=== PATIENT | male | born 1945 | race Caucasian/White ===

== ENCOUNTER 2018-08-04 08:13 | Day surgery (SDC) | payer OTHER, BC ==
[2018-07-28 11:12] VITALS: BMI 32.5
[2018-08-04] MEDS ORDERED: BUPIVACAINE HCL/PF 2.5 MG/ML - 30 ML VIAL IJ ONE (10:10)
[2018-08-04] MEDS ORDERED: methylPREDNISolone ACET (DEPO) 40 MG/1 ML VIAL ONE ×2 (10:10→11:37)
[2018-08-04] MEDS ORDERED: ONDANSETRON 4 MG/2 ML VIAL ONE ×2 (10:11→11:26)
[2018-08-04] MEDS ORDERED: LIDOCAINE HCL/PF 2% SDV 5ML VIAL ONE (10:11)
[2018-08-04] MEDS ORDERED: PROPOFOL 20 ML ONE ×2 (10:11→10:58)
[2018-08-04] MEDS ORDERED: KETOROLAC TROMETHAMINE 30 MG/1 ML VIAL ONE (10:11)
[2018-08-04] MEDS ORDERED: DEXAMETHASONE SOD PHOSPHATE 4 MG/1 ML VIAL ONE (10:11)
[2018-08-04] MEDS ORDERED: MIDAZOLAM HCL 2 MG/2 ML SINGLE DOSE VIAL ONE (10:54)
[2018-08-04] MEDS ORDERED: ceFAZolin SODIUM 1 GM VIAL IVPB ONE (11:03)
[2018-08-04] MEDS ORDERED: ceFAZolin SODIUM 1 GM VIAL ONE (11:12)
[2018-08-04] MEDS ORDERED: methylPREDNISolone ACET (DEPO) 40 MG/1 ML VIAL NR ONE (11:40)
[2018-08-04] MEDS ORDERED: BUPIVACAINE HCL/PF 0.25% (2.5MG/ML) 10 ML VIAL IJ ONE (11:40)
[2018-08-04] MEDS ORDERED: oxyCODONE HCL 5 MG TABLET PO PRN (11:57)
[2018-08-04] MEDS ORDERED: ONDANSETRON 4 MG/2 ML VIAL IVPUSH PRN (11:57)
[2018-08-04] MEDS ORDERED: ACETAMINOPHEN 325 MG TABLET (FP) PO PRN (11:57)
[2018-08-04] MEDS ORDERED: LACTATED RINGERS SOLUTION 1,000 ML IV SCH (12:00)
--- NOTE | 2018-08-04 12:16 | OP ---
DATE OF OPERATION: DATE OF DICTATION: 08/04/2018 SURGEON: Ernie Alcaraz MD TERRITORY SERVICE REPRESENTATIVE: Krishan Alcaraz MD PREOPERATIVE DIAGNOSIS: Osteoarthritis, left knee with medial meniscal tear. POSTOPERATIVE DIAGNOSIS: Diffuse tricompartmental severe osteoarthritis knee with fibular tearing of the medial and lateral meniscus and diffuse synovitis. OPERATION PERFORMED: Left arthroscopic washout and diagnostic arthroscopy of the knee. ANESTHESIA: General. DESCRIPTION OF PROCEDURE: The patient was correctly identified. Brought to the operating room. The left lower extremity was prepped and draped in a routine manner with Betadine scrub solution, wiped off with alcohol, DuraPrep applied. Under general anesthesia, the knee was examined. Crepitus was noted in the patellofemoral and femorotibial joint. The knee was in slight valgus. The standard anterolateral portal was utilized after a routine draping. The arthroscopic instrumentation into the knee revealed multiple fibular loose bodies in the joint. The joint was thoroughly lavaged. The joint was inspected. There was diffuse villonodular- type synovitis throughout, angry hemorrhagic-appearing material. The trochlear groove, the retropatellar surface, the tibial plateaus, and the femoral condyles were diffusely involved in severe end-stage osteoarthritic process. The menisci were carefully inspected. The medial meniscus interestingly virtually covered the entire surface of the tibial plateau much like a discoid meniscus. The inner margin revealed fibular fraying, but there was no flap tear in the confines of the meniscus at all. We were able to place the scope under the actual meniscus itself, looked at the meniscus from the deep undersurface as well as the superior surface. On review of an intact meniscus, this was left well alone. The intercondylar notch revealed a well-maintained anterior cruciate ligament. PCL ligament was also visualized. Appeared to be normal. The lateral compartment revealed the same degree of osteoarthritic changes as that of the medial compartment. The meniscus itself was a normal-looking meniscus as well with intrafibular marginal tearing. Slightly more advanced fibular degenerative changes noted on the lateral meniscus. It was elected at this point to leave well alone. We washed the joint out of all of the debris and instilled Marcaine steroid into the joint and closed the wound with a single nylon suture. PLAN: This gentleman will require a left total knee arthroplasty. MD ALEJANDRO Shi/[id number] KOLE
[2018-08-04] MEDS ORDERED: DOCUSATE SODIUM 100 MG CAPSULE (FP) PO PRN ×2 (12:20)
[2018-08-04] MEDS ORDERED: PATIENT'S OWN MEDICATION (NON-FORMULARY) (Alprazolam [Xanax] 0.5 MG) PO PRN (12:20)
--- NOTE | 2018-08-04 12:20 | PN ---
Progress Note (short form) - Note Progress Note: 73M s/p surgical arthroscopy LEFT knee POD #0. -Pain control: per anaesthesia team; NSAID's. -DVT PPx: - Mechanical: ROLANDO's, SCD's. -Incentive spirometry. -PT/OT/Rehab, OOB. -WBAT LLE. -Cane/crutches as needed. -Diet as tolerated. -Keep dressing clean & dry; d/c dressing on Tuesday, place waterproof Band-Aid's over incisions, then OK to resume showering. -Discharge planning: f/u [facility] [place] office Tuesday08/11/2018; call for appointment; . -Will follow. Ernie Alcaraz MD (Orthopaedic Surgery).
--- NOTE | 2018-08-04 12:23 | OP ---
Operative Note - Note: Operative Date: 08/04/18 Pre-Operative Diagnosis: Primary osteoarthritis left knee Operation: Primary osteoarthritis left knee Findings: Tricompartment arthritis left knee Tourniquet Pressure: 250mmHg. Tourniquet Time: 15 minutes. Post-Operative Diagnosis: Same as Pre-op Surgeon: Ernie Alcaraz Small Parts Assembler: Krishan Alcaraz Anesthesiologist/LEADERSHIP RECRUITER: Tomasa Lott Anesthesia: General Estimated Blood Loss (mls): 0 Fluid Volume Replaced (mls): 600 (Crystalloid) Operative Report Dictated: Yes
[2018-08-04] MEDS ORDERED: hydrALAZINE HCL 50 MG TABLET (FP) PO SCH (14:00)
[2018-08-04 15:13] VITALS: TEMP 97.8
[2018-08-04 15:17] VITALS: BP 124/75; PULSE 56
[2018-08-04] MEDS ORDERED: POTASSIUM CHLORIDE TABS 10 MEQ TABLET.ER (FP) PO SCH (22:00)
[2018-08-04] MEDS ORDERED: MIRTAZAPINE 30 MG TABLET (FP) PO SCH (22:00)
[2018-08-05] MEDS ORDERED: FUROSEMIDE 40 MG TABLET (FP) PO SCH (10:00)
[2018-08-05] MEDS ORDERED: FOSINOPRIL SODIUM PO SCH (10:00)
[2018-08-05] MEDS ORDERED: ASPIRIN COATED 81 MG TABLET.EC PO SCH (10:00)
[2018-08-05] MEDS ORDERED: ESCITALOPRAM OXALATE 10 MG TABLET (FP) PO SCH (10:00)
[2018-08-05] MEDS ORDERED: amLODIPine BESYLATE 10 MG TABLET (FP) PO SCH (10:00)
[2018-08-05] MEDS ORDERED: PATIENT'S OWN MEDICATION (NON-FORMULARY) (Ferrous Sulfate [Ferrous Sulfate] 325 MG) PO SCH (10:00)
[2018-08-05] MEDS ORDERED: INSULIN GLARGINE HUM REC ANLOG 28 UNIT SQ SCH (10:00)
[2018-08-05] MEDS ORDERED: METOLAZONE 5 MG TABLET PO SCH (10:00)
[2018-08-05] MEDS ORDERED: PATIENT'S OWN MEDICATION (NON-FORMULARY) (Famotidine [Pepcid] 40 MG) PO SCH (10:00)
[2018-08-05] MEDS ORDERED: FOLIC ACID 1 MG TABLET (FP) PO SCH (10:00)
[2018-08-05] MEDS ORDERED: PATIENT'S OWN MEDICATION (NON-FORMULARY) (Simvastatin 10 MG) PO SCH (10:00)
[2018-08-05] MEDS ORDERED: PATIENT'S OWN MEDICATION (NON-FORMULARY) (Tadalafil [Cialis] 20 MG) PO SCH (10:00)
[2018-08-05] MEDS ORDERED: PSYLLIUM HUSK 660 GM PO SCH (10:00)
[2018-08-05] MEDS ORDERED: GABAPENTIN 300 MG CAPSULE (FP) PO SCH (10:00)
== END 2018-08-04 14:20 | disposition home or self-care (01) ==
LOC: FASU 08:13
PROVIDERS: ATTEND Orthopaedic Surgery Orthopaedic Surgery of the Spine
PROC: 0SJD4ZZ Inspection of Left Knee Joint, Percutaneous Endoscopic Approach (ICD-10-PCS; principal; 2018-08-04 10:00)
DX: M17.12 Unilateral primary osteoarthritis, left knee (principal); M23.362 Other meniscus derangements, other lateral meniscus, left knee; M23.332 Other meniscus derangements, other medial meniscus, left knee
CPT/HCPCS: 82962; 94760

== ENCOUNTER 2018-12-20 08:00 | Inpatient (IN) | payer OTHER, BC ==
[2018-12-11 12:32] VITALS: BMI 33.9
[2018-12-20] MEDS ORDERED: BUPIVACAINE LIPOSOME/PF (EXPAREL) 266 MG/20 ML VIAL ONE (10:04)
[2018-12-20] MEDS ORDERED: SODIUM CHLORIDE 0.9% P/F 10 ML VIAL IJ ONE (10:04)
[2018-12-20] MEDS ORDERED: MIDAZOLAM HCL 2 MG/2 ML SINGLE DOSE VIAL ONE (10:04)
[2018-12-20] MEDS ORDERED: VANCOMYCIN 1,000 MG VIAL (RESTRICTED TO ID ONLY) ONE (10:40)
[2018-12-20] MEDS ORDERED: TRANEXAMIC ACID 1000 MG/10 ML VIAL IVPUSH ONE (11:22)
[2018-12-20] MEDS ORDERED: CEFAZOLIN 2 GM/D5W 2 GM/50 ML ML IVPB ONE (11:22)
[2018-12-20] MEDS ORDERED: ePHEDrine SULFATE 50 MG/1 ML AMPULE ONE ×2 (11:35→11:49)
[2018-12-20] MEDS ORDERED: PHENYLEPHRINE HCL 10 MG/1 ML SINGLE DOSE VIAL ONE (11:42)
[2018-12-20] MEDS ORDERED: ceFAZolin SODIUM 1 GM VIAL ONE ×3 (11:48→13:11)
[2018-12-20] MEDS ORDERED: TRANEXAMIC ACID 1000 MG/10 ML VIAL ONE (13:10)
[2018-12-20] MEDS ORDERED: BENZOIN/ALOE VERA/STORAX/TOLU 58 ML BOTTLE ONE (13:33)
[2018-12-20] MEDS ORDERED: ONDANSETRON 4 MG/2 ML VIAL IVPUSH PRN ×2 (13:43→14:14)
[2018-12-20] MEDS ORDERED: MAGNESIUM HYDROX 2400MG/30ML ORAL SUSPENSION 30 ML CUP PO PRN (13:43)
[2018-12-20] MEDS ORDERED: MAG HYDROX/AL HYDROX/SIMETH 30 ML UNIT-DOSE CUP PO PRN (13:43)
[2018-12-20] MEDS ORDERED: LACTATED RINGERS SOLUTION 1,000 ML IV SCH ×2 (13:45→16:46)
[2018-12-20] MEDS ORDERED: PATIENT'S OWN MEDICATION (NON-FORMULARY) (Simethicone [Simethicone] 125 MG) PO PRN (13:45)
--- NOTE | 2018-12-20 13:48 | PN ---
Progress Note (short form) - Note Progress Note: 73M s/p LEFT total knee replacement POD #0. -Pain control. -DVT PPx: -Chemical: ASA 81mg PO BID x 6 weeks; home Coumadin dosage. -Mechanical: ROLANDO's, SCD's. -Incentive spirometry q15 min. -PT/OT/Rehab, OOB. -WBAT LLE. -Antibiotics: Ancef x 3 post op doses. -f/u post-op trial of void (8 hours max). -Diet as tolerated. -Keep dressing clean & dry. -Care per medical hospitalist: Dr. Gamble. -f/u [facility] [place] office 12/28/2018; call for appointment; [phone]. -Will follow. Ernie Alcaraz MD (Orthopaedic Surgery).
--- NOTE | 2018-12-20 13:50 | OP ---
Operative Note - Note: Operative Date: 12/20/18 Pre-Operative Diagnosis: Left knee DJD Operation: Left TKA Implants: [employer]. Femur - 5. Tibia - 6, 50mm stem. Poly - 11mm, PS. Patella - 27mm, symmetric Post-Operative Diagnosis: Same as Pre-op Surgeon: Ernie Alcaraz Mounter Smoking Pipe: Krishan Alcaraz Anesthesiologist/MACHINE I CUTTER: Gunnar Nix Anesthesia: Spinal Specimens Removed: Bone, soft tissue Estimated Blood Loss (mls): 50 Drains & Tubes with Location: 1 x deep HemoVac Fluid Volume Replaced (mls): 750 Operative Report Dictated: Yes
[2018-12-20] MEDS ORDERED: GABAPENTIN 300 MG CAPSULE (FP) PO SCH (14:00)
[2018-12-20] MEDS ORDERED: PROMETHAZINE HCL 25 MG/1 ML VIAL IVPB PRN (14:14)
[2018-12-20] MEDS ORDERED: oxyCODONE HCL 5 MG TABLET PO PRN (14:14)
[2018-12-20] MEDS: ACETAMINOPHEN 325 MG TABLET (FP) PO SCH ×2 (14:52→20:22)
[2018-12-20] MEDS: ALPRAZolam 0.25 MG TABLET PO PRN (16:33)
[2018-12-20] MEDS: hydrALAZINE HCL 50 MG TABLET (FP) PO SCH ×2 (17:16→21:34)
[2018-12-20] MEDS: oxyCODONE HCL 5 MG TABLET PO PRN ×2 (18:16→22:44)
[2018-12-20] MEDS: CEFAZOLIN 2 GM/D5W 2 GM/50 ML ML IVPB SCH (18:32)
--- NOTE | 2018-12-20 18:53 | CONSULT ---
Consult Consult Specialty:: IM Reason for Consultation:: post-op medical management - History of Present Illness Chief Complaint: left knee pain. denies chest pain, nausea, vomiting, diarrhea History of Present Illness: 73 yo man with Left knee DJD came in for left knee TKA. denies chest pain, palpitations, nausea, vomiting, diarrhea. - History Source History Provided By: Patient Limitations to Obtaining History: No Limitations - Past Medical History Cardio/Vascular: Yes: HTN Heme/Onc: Yes: Anemia ( ) Psych: Yes: Anxiety, Depression - Alcohol/Substance Use Hx Alcohol Use: Yes (OCCASIONALLY) - Smoking History Smoking history: Never smoked Home Medications - Allergies Allergies/Adverse Reactions: Allergies Allergy/AdvReac Type Severity Reaction Status Date / Time Sulfa (Sulfonamide Allergy Severe Rash Verified 12/20/18 08:48 Antibiotics) levofloxacin [From Levaquin] Allergy Unknown Verified 12/20/18 08:48 - Home Medications Home Medications: Ambulatory Orders Alprazolam [Xanax] 0.5 mg PO Q4H PRN 07/28/18 Amlodipine Besylate [Norvasc -] 10 mg PO DAILY 07/28/18 Aspirin [Adult Aspirin Regimen] 81 mg PO DAILY 07/28/18 Docusate Sodium [Colace] 100 mg PO TID PRN 07/28/18 Escitalopram Oxalate [Lexapro -] 10 mg PO DAILY 07/28/18 Famotidine [Pepcid] 40 mg PO DAILY 07/28/18 Ferrous Sulfate 325 mg PO DAILY 07/28/18 Folic Acid 1 mg PO DAILY 07/28/18 Fosinopril Sodium 5 mg PO DAILY 07/28/18 Furosemide [Lasix -] 40 mg PO DAILY 07/28/18 Gabapentin 300 mg PO TID 07/28/18 Hydralazine HCl 50 mg PO TID 07/28/18 Insulin Glargine,Hum.rec.anlog [Lantus Solostar PEN (NF)] 34 units SQ DAILY Metoprolol Succinate [Toprol Xl] 50 mg PO BID 07/28/18 Mirtazapine 30 mg PO HS 07/28/18 Potassium Chloride [Klor-Con M10] 10 meq PO BID 07/28/18 Psyllium Husk [Metamucil] 660 gm PO DAILY PRN 07/28/18 Simvastatin [Zocor] 10 mg PO DAILY 07/28/18 Tadalafil [Cialis] 20 mg PO DAILY 07/28/18 Cholecalciferol (Vitamin D3) [Vitamin D3] 1,000 unit PO DAILY 12/11/18 Escitalopram Oxalate [Lexapro -] 10 mg PO DAILY 12/11/18 Metolazone 5 mg PO DAILY 12/11/18 Sennosides [Senna] 8.6 mg PO DAILY PRN 12/11/18 Simethicone 125 mg PO TID PRN 12/11/18 Sitagliptin Phosphate [Januvia] 25 mg PO DAILY 12/11/18 Tadalafil [Cialis] 20 mg PO DAILY PRN 12/11/18 Family Disease History - Family Disease History Family History: Unremarkable Review of Systems - Review of Systems Constitutional: reports: Weakness Eyes: reports: No Symptoms HENT: reports: No Symptoms Neck: reports: No Symptoms Cardiovascular: reports: No Symptoms Respiratory: reports: No Symptoms Gastrointestinal: reports: Bloating Genitourinary: reports: No Symptoms Musculoskeletal: reports: Joint Pain, Joint Swelling Integumentary: reports: No Symptoms Neurological: reports: No Symptoms Endocrine: reports: No Symptoms Hematology/Lymphatic: reports: No Symptoms Psychiatric: reports: Anxiety, Depression Pain Intensity: 7 Physical Exam Vital Signs: Vital Signs Temperature 97.4 F L 12/20/18 17:43 Pulse Rate 51 L 12/20/18 17:43 Respiratory Rate 14 12/20/18 17:43 Blood Pressure 155/55 L 12/20/18 17:43 O2 Sat by Pulse Oximetry (%) 100 12/20/18 17:43 Constitutional: Yes: Well Nourished, Anxious Eyes: Yes: WNL HENT: Yes: WNL Neck: Yes: WNL Cardiovascular: Yes: WNL Respiratory: Yes: WNL Gastrointestinal: Yes: Hypoactive Bowel Sounds Renal/: Yes: WNL Musculoskeletal: Yes: Joint Stiffness Extremities: Yes: WNL Edema: No Peripheral Pulses WNL: Yes Integumentary: Yes: WNL Wound/Incision: Yes: Clean/Dry, Well Approximated Neurological: Yes: WNL ...Motor Strength: WNL Assessment/Plan 73 yo man with left knee pain S/P TKA POD#0. cont pain management. incentive spirometry -GI, DVT prophylaxis -ID: Cefazolin given dano-operatively. -HTN: cont amlodipine, hydralazine. -type 2 DM: on insulin, RISS, januvia. -major anxiety and depression: on xanax, lexapro -chronic systolic CHF: on lasix, lisinopril, zaroxylin -PT/OOB/OT as tolerated -oral diet -assessment and plan discussed with pt and staff. labs and meds reviewed phone calls answered AM labs ordered 45 min
[2018-12-20] MEDS: ATORVASTATIN CA 10 MG TABLET (FP) PO SCH (21:34)
[2018-12-20] MEDS: ASPIRIN COATED 81 MG TABLET.EC PO SCH (21:34)
[2018-12-20] MEDS: MIRTAZAPINE 15 MG TABLET (FP) PO SCH (21:34)
[2018-12-20] MEDS: POTASSIUM CHLORIDE TABS 10 MEQ TABLET.ER (FP) PO SCH (21:35)
[2018-12-20] MEDS: SENNOSIDES/DOCUSATE COMBO (SENNA PLUS) TABLET (UD) PO SCH (21:35)
[2018-12-20] MEDS: oxyCODONE HCL 10 MG SUSTAINED ACTING TABLET PO SCH (21:35)
[2018-12-21] MEDS: ALPRAZolam 0.25 MG TABLET PO PRN (00:17)
[2018-12-21] MEDS: CEFAZOLIN 2 GM/D5W 2 GM/50 ML ML IVPB SCH ×2 (00:28→06:36)
[2018-12-21] MEDS: ACETAMINOPHEN 325 MG TABLET (FP) PO SCH ×4 (01:21→21:22)
[2018-12-21] MEDS: hydrALAZINE HCL 50 MG TABLET (FP) PO SCH ×3 (06:36→21:21)
[2018-12-21] MEDS: INSULIN (LEVEMIR) 100 UNITS/ML UNITS SQ SCH (07:30)
[2018-12-21 08:03] LABS: BASO % 0.3 % (0-2.0); EOS % 0.1 % (0-4.5); HEMATOCRIT 28.7 % (35.4-49); HEMOGLOBIN 9.5 GM/dl (11.7-16.9); MCHC 33.1 g/dl (32.0-35.9); MEAN CELL VOLUME 90.7 fl (80-96); MEAN PLT VOLUME 8.4 fl (7.5-11.1); MONO % 15.3 % (3.8-10.2); NEUT % 64.3 % (42.8-82.8); PLATELET COUNT 255 K/MM3 (134-434); RBC 3.17 M/mm3 (4.00-5.60); RDW 12.2 % (11.9-15.9); WHITE BLOOD COUNT 16.2 K/mm3 (4.0-10.8)
[2018-12-21 08:15] LABS: CALCIUM 8.8 mg/dl (8.5-10); CREATININE 3.7 mg/dl (0.55-1.3); POTASSIUM 3.1 mmol/L (3.5-5.1)
[2018-12-21] MEDS: METOLAZONE 5 MG TABLET PO SCH (09:35)
[2018-12-21] MEDS ORDERED: ESCITALOPRAM OXALATE 10 MG TABLET (FP) PO SCH (10:00)
[2018-12-21] MEDS ORDERED: PATIENT'S OWN MEDICATION (NON-FORMULARY) (Famotidine [Pepcid] 40 MG) PO SCH (10:00)
--- NOTE | 2018-12-21 10:38 | PN ---
Progress Note (short form) - Note Progress Note: POD #1 Left TKA Patient had some issues with pain control overnight but now resolved. Patient states his pain is controlled and he is tolerating his diet. He denies any CP, SOB, N/V, fever or chills. Vital Signs Temp 101 F H 12/21/18 07:17 Pulse 97 H 12/21/18 06:00 Resp 18 12/21/18 06:00 BP 178/72 H 12/21/18 06:00 Pulse Ox 93 L 12/21/18 06:00 Intake & Output 12/20/18 12/20/18 12/21/18 11:59 23:59 11:59 Intake Total 4700 Output Total 515 Balance 4185 Weight 229 lb 9.6 oz Intake: IV 1300 Oral 400 Other 3000 Output: Drainage 15 Urine 500 Void 500 Other: Voiding Method Urinal Diaper Height 5 ft 9 in Body Mass Index (BMI) 33.9 Weight Measurement Method Standing Scale CBC, BMP 12/21/18 07:20 12/21/18 07:20 PE: A&Ox3, NAD Unlabored resp on RA Left LL, dressing with minimal amount of dried blood at lateral boarder of knee and some midline. no evidence of active bleeding, collection or d/c. ROM from 5- 70 degrees. B/L LE compartments soft, supple and non-tender with +2 DP pulses. Problem List - Problems (1) Arthritis of knee Assessment/Plan: POD#1 Left TKA patient spiked fever in AM in the setting of chronic anemia and CKD. -trend vitals/fever- Fever work up as needed -Pain control. -DVT PPx: -Chemical: ASA 81mg PO BID x 6 weeks -Mechanical: ROLANDO's, SCD's. -Incentive spirometry q15 min. -PT/OT/Rehab, OOB. -WBAT LLE. -Antibiotics: Ancef x 3 post op doses. -Diet as tolerated. - Trend labs -Keep dressing clean & dry. -Care per medical hospitalist: Dr. Gamble. -f/u [facility] [place] office 12/28/2018; call for appointment; . -Will follow. Code(s): M17.10 - UNILATERAL PRIMARY OSTEOARTHRITIS, UNSPECIFIED KNEE
[2018-12-21] MEDS: ASPIRIN COATED 81 MG TABLET.EC PO SCH ×2 (10:43→21:21)
[2018-12-21] MEDS: POTASSIUM CHLORIDE TABS 10 MEQ TABLET.ER (FP) PO SCH ×2 (10:43→21:21)
[2018-12-21] MEDS: ESCITALOPRAM OXALATE 10 MG TABLET (FP) PO SCH (10:43)
[2018-12-21] MEDS: FUROSEMIDE 40 MG TABLET (FP) PO SCH (10:43)
[2018-12-21] MEDS: amLODIPine BESYLATE 10 MG TABLET (FP) PO SCH (10:44)
[2018-12-21] MEDS: oxyCODONE HCL 10 MG SUSTAINED ACTING TABLET PO SCH ×2 (10:44→21:21)
[2018-12-21] MEDS: LISINOPRIL 5 MG TABLET (FP) PO SCH (10:52)
[2018-12-21] MEDS: SENNOSIDES/DOCUSATE COMBO (SENNA PLUS) TABLET (UD) PO SCH ×2 (10:52→21:20)
[2018-12-21] MEDS: PANTOPRAZOLE 40 MG TABLET (FP) PO SCH (10:52)
--- NOTE | 2018-12-21 12:32 | OP ---
DATE OF OPERATION: DATE OF DICTATION: 12/20/2018 SURGEON: Ernie Alcaraz MD ASSISTANTS: Krishan Alcaraz MD, and Keith Justice PA-C PREOPERATIVE DIAGNOSIS: Tricompartmental osteoarthritis, left knee, with fixed valgus deformity. POSTOPERATIVE DIAGNOSIS: Tricompartmental osteoarthritis, left knee, with fixed valgus deformity. OPERATION PERFORMED: 1. Left posterior stabilized total knee replacement (Lavon). 2. Left lateral release. ANESTHESIA: Conscious sedation with spinal anesthesia and peripheral nerve block. ANTIBIOTICS GIVEN: Kefzol 2 g, 1 g vancomycin preop, 1 g Kefzol at the time of release of the tourniquet. OPERATION DETAILS: Patient correctly identified, brought to the operating room. Left lower extremity was prepped and draped in the routine manner with Betadine scrub solution, wiped with alcohol, DuraPrep applied. Timeout was called. Imaging was available for intraoperative evaluation. On the table, preoperative evaluation revealed classical features of tricompartmental osteoarthritis with range of movement 0-90 degrees. After full drape and preparation with Betadine scrub solution, being wiped off with alcohol and DuraPrep applied and a left free drape applied, a midline incision was utilized, centered over the patella, just distal to the tibial tubercle and just proximal to the superior pole of the patella. The exposure was taken down through subcutaneous tissue to the fascia. The entire quadriceps mechanism was exposed. The proximomedial aspect of the tibial soft tissue off the medial side of the proximal tibia was dissected using Bovie and sharp dissection all the way around. This extended up to the midsection of the patella and curved around to extend right, leaving about 1 inch of the border of the vastus medialis. Soft tissue attachments were left alone and incision was taken through this plane right down to the posterior aspect of the femoral condyle just anterior to the vascular bundle. The epimysium of the vastus was freed off the muscle with sharp dissection. The suprapatellar pouch was entered and transected and the soft tissue off the distal anterior aspect of the femur resected. Blunt Hohmann was placed at the subvastus, and the patella was subluxed laterally and the knee was flexed with no difficulty. This subvastus approach gave complete easy access to the knee. The cruciate ligaments were transected. The menisci were easy at hand to resect, which was done. The tibia was cut first. The tibia cut was made utilizing the extramedullary jig alignment of [employer]. It was cut to neutral, that is 90 degrees to the tibia, lined up to the middle of the talus. The cuts took off about the regular 2 mm of bone off the proximal tibia. We measured the tibia at that point to a size 6, and the tibial bed was appropriately prepared with the starter drill and the broach. The knee was flexed, and the distal femoral cuts were made with the jig system, +4 mm of bone resected off the distal femur, the reason being that the lateral femoral condyle was markedly deficient, and in order to get a bone cut on that area for cementing the implant, this was appropriately done so that there was no excess of valgus deformity built into the implant as a result of this bone resection. The femur was measured to a size 5. Flexion-extension gaps were equal and even at 11 mm. The jig cuts enabled completely normal bony cuts. The box cut was made with the appropriate jig, and a size 4 femoral component was placed onto the bone bed for trialing purposes. This resulted in the knee being fully straight and full range of movement noted, but the only problem was the patella was subluxing laterally, and for that reason we then went ahead from inside to perform a lateral release. The lateral retinaculum was identified. A Bovie was utilized in order to open and make a defect in the lateral soft tissue mass. A sharp Prince scissors was run up and down. We aimed at transecting the retinacular tissues by only interfering with the inferior and middle lateral genicular vessels. We did not go proximally to interfere with the superior blood supply of the quadriceps tendon and patella. Once this lateral release had been completed, then the trialing, we were satisfied with the trialing. We had complete stability found with an 11-mm spacer, knee brought into full extension and was able to flex to 120 degrees with ease, and stability in the coronal sagittal rotatory plane 0, 90 degrees, were all normal and well maintained. We elected to go ahead and with cementing. The bone bed was thoroughly lavaged with pulse lavage, dried, entheses noted. pumped into the entheses and the definitive implants, namely a size 6 tibia, size 5 femur, size 26-mm patellar button all cemented into position. The preparation of the patella button was performed by resecting the retropatellar surface from patellar ligament to quadriceps tendon with an oscillating saw and the appropriate jigs applied and the lug holes inserted into the patella. On the table the range of movement was 0-120 degrees. The ligaments within the coronal, sagittal articular plane at 0 and 100 degrees were normal. At that point we elected to go ahead with removal of the tourniquet, and closure was as follows: The remaining soft tissue envelope with No. 1 Vicryl, that is the subvastus repair. The subcutaneous layer was No. 1 and 2-0 Vicryl. Skin, genesis. Drainage with 1/8-inch Hemovac x1. Light bandage applied. Postop x-rays were excellent. Patient extricated out of the room. CONCERNS: Blood loss due to the myeloma. This will be attended to over the next few days. MD ALEJANDRO Shi/[id number]
--- NOTE | 2018-12-21 13:33 | PN ---
Progress Note (short form) - Note Progress Note: ANESTHESIA POSTOP 73 YO MALE POD#1 S/P TKA, SPINAL AND PNB Patient resting in bed. No pain issues. Continue current care, encouraged IS and PT. No anesthetic complications
--- NOTE | 2018-12-21 20:58 | PN ---
Progress Note, Physician History of Present Illness: 73 yo man with Left knee DJD came in for left knee TKA. denies chest pain, palpitations, nausea, vomiting, diarrhea. - Current Medication List Current Medications: Active Medications Acetaminophen (Tylenol -) 650 mg PO Q6H [facility] Stop: 12/23/18 14:14 Last Admin: 12/21/18 13:35 Dose: 650 mg Al Hydroxide/Mg Hydroxide (Mylanta Oral Suspension -) 30 ml PO Q4H PRN PRN Reason: DYSPEPSIA Alprazolam (Xanax -) 0.5 mg PO Q4H PRN PRN Reason: ANXIETY Last Admin: 12/21/18 00:17 Dose: 0.5 mg Amlodipine Besylate (Norvasc -) 10 mg PO DAILY [facility] Last Admin: 12/21/18 10:44 Dose: 10 mg Aspirin (Ecotrin -) 81 mg PO BID [facility] Last Admin: 12/21/18 10:43 Dose: 81 mg Atorvastatin Calcium (Lipitor -) 10 mg PO HS [facility] Last Admin: 12/20/18 21:34 Dose: 10 mg Escitalopram Oxalate (Lexapro -) 10 mg PO DAILY [facility] Last Admin: 12/21/18 10:43 Dose: 10 mg Fentanyl (Sublimaze Injection -) 50 mcg IVPUSH [id number] PRN PRN Reason: PAIN-PACU ORDER X 4 DOSES ONLY Furosemide (Lasix -) 40 mg PO DAILY [facility] Last Admin: 12/21/18 10:43 Dose: 40 mg Hydralazine HCl (Apresoline -) 50 mg PO TID [facility] Last Admin: 12/21/18 14:00 Dose: 50 mg Insulin Detemir (Levemir Vial) 34 units SQ 0700 [facility] Last Admin: 12/21/18 07:30 Dose: 34 units Lisinopril (Prinivil) 5 mg PO DAILY [facility] Last Admin: 12/21/18 10:52 Dose: 5 mg Magnesium Hydroxide (Milk Of Magnesia -) 30 ml PO PRN PRN PRN Reason: CONSTIPATION Metolazone (Zaroxolyn -) 5 mg PO 0930 [facility] Last Admin: 12/21/18 09:35 Dose: 5 mg Metoprolol Succinate (Toprol Xl -) 50 mg PO BID [facility] Last Admin: 12/21/18 10:54 Dose: 50 mg Mirtazapine (Remeron -) 30 mg PO HS [facility] Last Admin: 12/20/18 21:34 Dose: 30 mg Non-Formulary Medication (Simethicone [Simethicone]) 125 mg PO TID PRN PRN Reason: FLATULENCE Ondansetron HCl (Zofran Injection) 4 mg IVPUSH Q6H PRN PRN Reason: NAUSEA Oxycodone HCl (Roxicodone -) 5 mg PO Q3H PRN PRN Reason: PAIN LEVEL 1-5 Oxycodone HCl (Roxicodone -) 10 mg PO Q3H PRN PRN Reason: PAIN LEVEL 6-10 Last Admin: 12/20/18 22:44 Dose: 10 mg Oxycodone HCl (Oxycontin -) 10 mg PO BID [facility] Stop: 12/23/18 14:16 Last Admin: 12/21/18 10:44 Dose: 10 mg Pantoprazole Sodium (Protonix -) 40 mg PO DAILY [facility] Last Admin: 12/21/18 10:52 Dose: 40 mg Potassium Chloride (K-Dur -) 10 meq PO BID [facility] Last Admin: 12/21/18 10:43 Dose: 10 meq Promethazine HCl (Phenergan Injection -) 12.5 mg IVPB Q6H PRN PRN Reason: NAUSEA-FOR RESCUE AFTER 15 MIN Senna/Docusate Sodium (Pericolace -) 2 tablet PO BID [facility] Last Admin: 12/21/18 10:52 Dose: 2 tablet Sitagliptin Phosphate (Januvia -) 25 mg PO 0700 [facility] Last Admin: 12/21/18 06:36 Dose: 25 mg - Objective Vital Signs: Vital Signs Temperature 101.1 F H 12/21/18 14:00 Pulse Rate 68 12/21/18 14:00 Respiratory Rate 20 12/21/18 20:23 Blood Pressure 114/44 L 12/21/18 14:00 O2 Sat by Pulse Oximetry (%) 97 12/21/18 20:23 Constitutional: Yes: Well Nourished, No Distress Eyes: Yes: WNL HENT: Yes: WNL Neck: Yes: WNL Cardiovascular: Yes: WNL Respiratory: Yes: WNL Gastrointestinal: Yes: WNL ...Rectal Exam: Yes: Deferred Genitourinary: Yes: WNL Musculoskeletal: Yes: Joint Stiffness Extremities: Yes: WNL Edema: No Peripheral Pulses WNL: Yes Integumentary: Yes: WNL Wound/Incision: Yes: Clean/Dry, Well Approximated Neurological: Yes: WNL ...Motor Strength: WNL Psychiatric: Yes: WNL Labs: CBC, BMP 12/21/18 07:20 12/21/18 07:20 Assessment/Plan 73 yo man with left knee pain S/P TKA POD#1. cont pain management. incentive spirometry -GI, DVT prophylaxis -ID: Cefazolin given dano-operatively. -HTN: cont amlodipine, hydralazine. -type 2 DM: on insulin, RISS, januvia. -major anxiety and depression: on xanax, lexapro -chronic systolic CHF: on lasix, lisinopril, zaroxylin. hypokalemia from diuresis. supplemented. -PT/OOB/OT. so far well tolerated -oral diet -assessment and plan discussed with pt and staff. labs and meds reviewed phone calls answered 25 min
[2018-12-21] MEDS: MIRTAZAPINE 15 MG TABLET (FP) PO SCH (21:21)
[2018-12-21] MEDS: ATORVASTATIN CA 10 MG TABLET (FP) PO SCH (21:21)
[2018-12-22] MEDS: ACETAMINOPHEN 325 MG TABLET (FP) PO SCH ×4 (06:57→21:13)
[2018-12-22] MEDS: hydrALAZINE HCL 50 MG TABLET (FP) PO SCH ×3 (06:58→21:13)
[2018-12-22] MEDS: INSULIN (LEVEMIR) 100 UNITS/ML UNITS SQ SCH (07:34)
[2018-12-22 08:17] LABS: CALCIUM 8.2 mg/dl (8.5-10); CREATININE 4.2 mg/dl (0.55-1.3); POTASSIUM 3.4 mmol/L (3.5-5.1)
[2018-12-22 08:35] LABS: BASO % 0.2 % (0-2.0); EOS % 0.1 % (0-4.5); HEMATOCRIT 24.5 % (35.4-49); HEMOGLOBIN 8.3 GM/dl (11.7-16.9); LYMPH % 18.7 % (8-40); MCH 30.9 pg (25.7-33.7); MCHC 33.9 g/dl (32.0-35.9); MEAN CELL VOLUME 91.1 fl (80-96); MEAN PLT VOLUME 8.5 fl (7.5-11.1); MONO % 11.4 % (3.8-10.2); NEUT % 69.6 % (42.8-82.8); PLATELET COUNT 183 K/MM3 (134-434); RDW 12.6 % (11.9-15.9); WHITE BLOOD COUNT 14.3 K/mm3 (4.0-10.8)
[2018-12-22] MEDS: ALPRAZolam 0.25 MG TABLET PO PRN (08:50)
[2018-12-22] MEDS ORDERED: PT OWN MED DRAWER 7, Y5N ONE (09:51)
--- NOTE | 2018-12-22 09:53 | PN ---
Progress Note (short form) - Note Progress Note: POD #2 Left TKA Patient having a lot of anxiety this morning saying he is afraid to move 2/2 pain, although nursing reports he has been moving on his own with no problems. He appears in distress this morning stating his head "spinning and he cant think straight." This entire process has been very overwhelming for him. He endorses feeling feverish. Overall his pain is controlled, he is tolerating his diet and voiding freely. He denies any H/A CP, SOB, N/V/D or chills. Vital Signs Temp 99.0 F 12/22/18 06:00 Pulse 89 12/22/18 06:00 Resp 19 12/22/18 06:00 BP 143/59 L 12/22/18 06:00 Pulse Ox 98 12/22/18 06:00 Intake & Output 12/21/18 12/21/18 12/22/18 11:59 23:59 11:59 Intake Total 350 380 Balance 350 380 Intake: Oral 350 380 Other: Voiding Method Diaper Diaper Diaper CBC, BMP 12/22/18 06:30 12/22/18 06:30 PE: A&Ox1, but cannot recall the month or name of the hospital. teary eyed Unlabored resp on RA Left LL, incision c/d/i with surrounding tissue intact and genesis in situ, no tracking erythema or evidence of collection or d/c. ROM from 10-60 degrees. B/L LE compartments soft, supple and non-tender with +2 DP pulses. Problem List - Problems (1) Arthritis of knee Assessment/Plan: POD#2 Left TKA patient continues to spike fevers yesterday in the setting of chronic anemia and CKD. -trend vitals/fever - f/u fever work up - Renal consult appreciated -Pain control. -DVT PPx: -Chemical: ASA 81mg PO BID x 6 weeks -Mechanical: ROLANDO's, SCD's. -Incentive spirometry q15 min. -PT/OT/Rehab, OOB. -WBAT LLE. -Antibiotics: Ancef x 3 post op doses. -Diet as tolerated. - Trend labs -Keep dressing clean & dry. -Care per medical hospitalist: Dr. Gamble. -f/u [facility] [place] office 12/28/2018; call for appointment; . -Will follow. Code(s): M17.10 - UNILATERAL PRIMARY OSTEOARTHRITIS, UNSPECIFIED KNEE
[2018-12-22] MEDS: amLODIPine BESYLATE 10 MG TABLET (FP) PO SCH (09:54)
[2018-12-22] MEDS: PANTOPRAZOLE 40 MG TABLET (FP) PO SCH (09:55)
[2018-12-22] MEDS: ASPIRIN COATED 81 MG TABLET.EC PO SCH ×2 (09:55→21:13)
[2018-12-22] MEDS: LISINOPRIL 5 MG TABLET (FP) PO SCH (09:56)
[2018-12-22] MEDS: ESCITALOPRAM OXALATE 10 MG TABLET (FP) PO SCH (09:56)
[2018-12-22] MEDS: METOLAZONE 5 MG TABLET PO SCH (09:56)
[2018-12-22] MEDS: SENNOSIDES/DOCUSATE COMBO (SENNA PLUS) TABLET (UD) PO SCH ×2 (09:57→21:13)
[2018-12-22] MEDS: POTASSIUM CHLORIDE TABS 10 MEQ TABLET.ER (FP) PO SCH ×2 (09:57→21:13)
[2018-12-22] MEDS: FUROSEMIDE 40 MG TABLET (FP) PO SCH (11:17)
--- NOTE | 2018-12-22 11:22 | PN ---
Progress Note, Physician - Current Medication List Current Medications: Active Medications Acetaminophen (Tylenol -) 650 mg PO Q6H [facility] Stop: 12/23/18 14:14 Last Admin: 12/22/18 10:00 Dose: 650 mg Al Hydroxide/Mg Hydroxide (Mylanta Oral Suspension -) 30 ml PO Q4H PRN PRN Reason: DYSPEPSIA Alprazolam (Xanax -) 0.5 mg PO Q4H PRN PRN Reason: ANXIETY Last Admin: 12/22/18 08:50 Dose: 0.5 mg Amlodipine Besylate (Norvasc -) 10 mg PO DAILY [facility] Last Admin: 12/22/18 09:54 Dose: 10 mg Aspirin (Ecotrin -) 81 mg PO BID [facility] Last Admin: 12/22/18 09:55 Dose: 81 mg Atorvastatin Calcium (Lipitor -) 10 mg PO HS [facility] Last Admin: 12/21/18 21:21 Dose: 10 mg Escitalopram Oxalate (Lexapro -) 10 mg PO DAILY [facility] Last Admin: 12/22/18 09:56 Dose: 10 mg Furosemide (Lasix -) 40 mg PO DAILY [facility] Last Admin: 12/21/18 10:43 Dose: 40 mg Hydralazine HCl (Apresoline -) 50 mg PO TID [facility] Last Admin: 12/22/18 06:58 Dose: 50 mg Insulin Detemir (Levemir Vial) 34 units SQ 0700 [facility] Last Admin: 12/22/18 07:34 Dose: 34 units Lisinopril (Prinivil) 5 mg PO DAILY [facility] Last Admin: 12/22/18 09:56 Dose: 5 mg Magnesium Hydroxide (Milk Of Magnesia -) 30 ml PO PRN PRN PRN Reason: CONSTIPATION Metolazone (Zaroxolyn -) 5 mg PO 0930 [facility] Last Admin: 12/22/18 09:56 Dose: 5 mg Metoprolol Succinate (Toprol Xl -) 50 mg PO BID [facility] Last Admin: 12/22/18 09:56 Dose: 50 mg Mirtazapine (Remeron -) 30 mg PO HS [facility] Last Admin: 12/21/18 21:21 Dose: 30 mg Non-Formulary Medication (Simethicone [Simethicone]) 125 mg PO TID PRN PRN Reason: FLATULENCE Ondansetron HCl (Zofran Injection) 4 mg IVPUSH Q6H PRN PRN Reason: NAUSEA Oxycodone HCl (Roxicodone -) 5 mg PO Q3H PRN PRN Reason: PAIN LEVEL 1-5 Oxycodone HCl (Roxicodone -) 10 mg PO Q3H PRN PRN Reason: PAIN LEVEL 6-10 Last Admin: 12/20/18 22:44 Dose: 10 mg Oxycodone HCl (Oxycontin -) 10 mg PO BID [facility] Stop: 12/23/18 14:16 Last Admin: 12/21/18 21:21 Dose: 10 mg Pantoprazole Sodium (Protonix -) 40 mg PO DAILY [facility] Last Admin: 12/22/18 09:55 Dose: 40 mg Potassium Chloride (K-Dur -) 10 meq PO BID [facility] Last Admin: 12/22/18 09:57 Dose: 10 meq Senna/Docusate Sodium (Pericolace -) 2 tablet PO BID [facility] Last Admin: 12/22/18 09:57 Dose: 2 tablet Sitagliptin Phosphate (Januvia -) 25 mg PO 0700 [facility] Last Admin: 12/22/18 06:58 Dose: 25 mg - Objective Vital Signs: Vital Signs Temperature 99.0 F 12/22/18 06:00 Pulse Rate 89 12/22/18 06:00 Respiratory Rate 19 12/22/18 06:00 Blood Pressure 143/59 L 12/22/18 06:00 O2 Sat by Pulse Oximetry (%) 98 12/22/18 06:00 Constitutional: Yes: Well Nourished, Anxious Eyes: Yes: WNL HENT: Yes: WNL Neck: Yes: WNL Cardiovascular: Yes: WNL Respiratory: Yes: WNL Gastrointestinal: Yes: WNL ...Rectal Exam: Yes: Deferred Genitourinary: Yes: WNL Musculoskeletal: Yes: Joint Stiffness Extremities: Yes: WNL Edema: No Peripheral Pulses WNL: Yes Integumentary: Yes: WNL Wound/Incision: Yes: Clean/Dry, Well Approximated Neurological: Yes: WNL Psychiatric: Yes: Agitated Labs: CBC, BMP 12/22/18 06:30 12/22/18 06:30 Assessment/Plan 73 yo man with left knee pain S/P TKA POD#2. cont pain management. incentive spirometry -GI, DVT prophylaxis -ID: Cefazolin given dano-operatively. had fever spike. CXR is negative for infiltrate. awaiting UA -HTN: cont amlodipine, hydralazine. -type 2 DM: on insulin, RISS, januvia. -major anxiety and depression: on xanax, lexapro -chronic systolic CHF: on lasix, lisinopril, zaroxylin. hypokalemia from diuresis. supplemented. -ÁNGEL on CKD: renal eval requested. avoid NSAIDs and nephrotoxins when able. renal US requested. -PT/OOB/OT. so far well tolerated -oral diet -assessment and plan discussed with pt and staff. labs and meds reviewed phone calls answered. hopefully DC to rehab tomorrow if medically improved. 25 min
--- NOTE | 2018-12-22 14:42 | CON.ID ---
Consult Consult Specialty:: infectious diseases Referred by:: Reason for Consultation:: fever,leukocytosis,renal failure - History of Present Illness Chief Complaint: fever History of Present Illness: 73 year old male with pmhx of ckd stage 4, htn, multiple myeloma, dm, obesity, anemia and gerd who is s/p left TKR. I was called to evaluate him for fevers . He says that he has history of ckd and that he was told he was at stage 4. His chart says he has stage 3. He denies dysuria or hematuria. He has poor appetite. He was also found to have worsening anemia. patient currently mentions that he feels fine and that his knee feels ok feels weak though and feels that his strnegth is not back says he does not know if he spiked a fever - History Source History Provided By: Patient Limitations to Obtaining History: No Limitations - Past Medical History Cardio/Vascular: Yes: HTN Psych: Yes: Anxiety, Depression - Alcohol/Substance Use Hx Alcohol Use: Yes (OCCASIONALLY) - Smoking History Smoking history: Never smoked Home Medications - Allergies Allergies/Adverse Reactions: Allergies Allergy/AdvReac Type Severity Reaction Status Date / Time Sulfa (Sulfonamide Allergy Severe Rash Verified 12/20/18 08:48 Antibiotics) levofloxacin [From Levaquin] Allergy Unknown Verified 12/20/18 08:48 - Home Medications Home Medications: Ambulatory Orders RX: Amlodipine Besylate [Norvasc -] 10 mg PO DAILY 07/28/18 RX: Escitalopram Oxalate [Lexapro -] 10 mg PO DAILY 07/28/18 RX: Ferrous Sulfate 325 mg PO DAILY 07/28/18 RX: Folic Acid 1 mg PO DAILY 07/28/18 RX: Hydralazine HCl 50 mg PO TID 07/28/18 RX: Insulin Glargine,Hum.rec.anlog [Lantus Solostar PEN -] 34 units SQ DAILY RX: Metoprolol Succinate [Toprol Xl] 50 mg PO BID 07/28/18 RX: Mirtazapine 30 mg PO HS 07/28/18 RX: Potassium Chloride [Klor-Con M10] 10 meq PO BID 07/28/18 RX: Simvastatin [Zocor -] 10 mg PO DAILY 07/28/18 RX: Cholecalciferol (Vitamin D3) [Vitamin D3] 1,000 unit PO DAILY 12/11/18 RX: Simethicone 125 mg PO TID PRN 12/11/18 RX: Sitagliptin Phosphate [Januvia] 25 mg PO DAILY 12/11/18 RX: Alprazolam [Xanax] 0.5 mg PO Q6H PRN #40 tablet MDD 4 12/26/18 RX: Aspirin Coated [Ecotrin -] 81 mg PO BID tablet.ec 12/26/18 RX: Pantoprazole Sodium [Protonix -] 40 mg PO DAILY tablet.ec 12/26/18 RX: Sennosides/Docusate Sodium [Pericolace -] 2 tablet PO BID tablet 12/26/18 RX: traMADol HCL [Ultram -] 50 mg PO Q6H PRN tablet MDD 4 12/26/18 Review of Systems - Review of Systems Constitutional: reports: Fever, Weakness Eyes: reports: No Symptoms HENT: reports: No Symptoms Neck: reports: No Symptoms Cardiovascular: reports: No Symptoms Respiratory: reports: No Symptoms Gastrointestinal: reports: No Symptoms Genitourinary: reports: No Symptoms Musculoskeletal: reports: No Symptoms Integumentary: reports: No Symptoms Neurological: reports: No Symptoms Endocrine: reports: No Symptoms Hematology/Lymphatic: reports: No Symptoms Psychiatric: reports: No Symptoms Physical Exam Vital Signs: Vital Signs Temperature 99.5 F 12/22/18 14:01 Pulse Rate 71 12/22/18 14:01 Respiratory Rate 18 12/22/18 14:01 Blood Pressure 92/41 L 12/22/18 14:01 O2 Sat by Pulse Oximetry (%) 93 L 12/22/18 14:01 Constitutional: Yes: Well Nourished, No Distress, Calm Eyes: Yes: Conjunctiva Clear Neck: Yes: Supple, Trachea Midline Cardiovascular: Yes: Regular Rate and Rhythm Respiratory: Yes: Regular, CTA Bilaterally Gastrointestinal: Yes: Normal Bowel Sounds, Soft Musculoskeletal: Yes: WNL Extremities: Yes: Other Wound/Incision: Yes: Dressing Dry and Intact Neurological: Yes: Alert, Oriented Psychiatric: Yes: Alert, Oriented Labs: CBC, BMP 12/22/18 06:30 12/22/18 06:30 Imaging - Results Chest X-ray: Report Reviewed, Image Reviewed X-ray: Report Reviewed, Image Reviewed Assessment/Plan Problem List - Problems (1) CKD (chronic kidney disease) Code(s): N18.9 - CHRONIC KIDNEY DISEASE, UNSPECIFIED (2) HTN (hypertension) Code(s): I10 - ESSENTIAL (PRIMARY) HYPERTENSION (3) Multiple myeloma Code(s): C90.00 - MULTIPLE MYELOMA NOT HAVING ACHIEVED REMISSION (4) Arthritis of knee Code(s): M17.10 - UNILATERAL PRIMARY OSTEOARTHRITIS, UNSPECIFIED KNEE 5 leukocytosis 6 fever plan will start patient on abx if patient spikes please cx monitor wbc wound care rest as per the team
[2018-12-22] MEDS: CEFTRIAXONE 1 G/50 ML PREMIX 50 ML IVPB SCH (15:20)
--- NOTE | 2018-12-22 15:42 | EKG ---
Test Reason : Blood Pressure : / mmHG Vent. Rate : 074 BPM Atrial Rate : 074 BPM P-R Int : 218 ms QRS Dur : 174 ms QT Int : 452 ms P-R-T Axes : 026 -24 000 degrees QTc Int : 501 ms SINUS RHYTHM WITH 1ST DEGREE A-V BLOCK RIGHT BUNDLE BRANCH BLOCK ABNORMAL ECG NO PREVIOUS ECGS AVAILABLE Confirmed by RAYMUNDO MCCRACKEN MD ([id number]) on 12/22/2018 3:42:09 PM Referred By: Ernie Alcaraz Confirmed By:RAYMUNDO MCCRACKEN MD
--- NOTE | 2018-12-22 18:01 | CONSULT ---
Consult Consult Specialty:: Nephrology Reason for Consultation:: CKD - History of Present Illness Chief Complaint: s/p left tkr History of Present Illness: Pt is a 73 year old male with pmhx of ckd stage 4, htn, multiple myeloma, dm, obesity, anemia and gerd who is s/p left TKR. I was called to evaluate him for elevated creatinine. He says that he has history of ckd and that he was told he was at stage 4. His chart says he has stage 3. He denies dysuria or hematuria. He has poor appetite. He was also found to have worsening anemia. - History Source History Provided By: Patient, Medical Record - Past Medical History Cardio/Vascular: Yes: HTN Renal/: Yes: Renal Inusuff Heme/Onc: Yes: Other (multiple myeloma) Psych: Yes: Anxiety, Depression Endocrine: Yes: Diabetes Mellitus - Past Surgical History Past Surgical History: Yes: Joint Replacement - Alcohol/Substance Use Hx Alcohol Use: Yes (OCCASIONALLY) - Smoking History Smoking history: Never smoked Home Medications - Allergies Allergies/Adverse Reactions: Allergies Allergy/AdvReac Type Severity Reaction Status Date / Time Sulfa (Sulfonamide Allergy Severe Rash Verified 12/20/18 08:48 Antibiotics) levofloxacin [From Levaquin] Allergy Unknown Verified 12/20/18 08:48 - Home Medications Home Medications: Ambulatory Orders Alprazolam [Xanax] 0.5 mg PO Q4H PRN 07/28/18 Amlodipine Besylate [Norvasc -] 10 mg PO DAILY 07/28/18 Aspirin [Adult Aspirin Regimen] 81 mg PO DAILY 07/28/18 Docusate Sodium [Colace] 100 mg PO TID PRN 07/28/18 Escitalopram Oxalate [Lexapro -] 10 mg PO DAILY 07/28/18 Famotidine [Pepcid] 40 mg PO DAILY 07/28/18 Ferrous Sulfate 325 mg PO DAILY 07/28/18 Folic Acid 1 mg PO DAILY 07/28/18 Fosinopril Sodium 5 mg PO DAILY 07/28/18 Furosemide [Lasix -] 40 mg PO DAILY 07/28/18 Gabapentin 300 mg PO TID 07/28/18 Hydralazine HCl 50 mg PO TID 07/28/18 Insulin Glargine,Hum.rec.anlog [Lantus Solostar PEN (NF)] 34 units SQ DAILY Metoprolol Succinate [Toprol Xl] 50 mg PO BID 07/28/18 Mirtazapine 30 mg PO HS 07/28/18 Potassium Chloride [Klor-Con M10] 10 meq PO BID 07/28/18 Psyllium Husk [Metamucil] 660 gm PO DAILY PRN 07/28/18 Simvastatin [Zocor] 10 mg PO DAILY 07/28/18 Tadalafil [Cialis] 20 mg PO DAILY 07/28/18 Cholecalciferol (Vitamin D3) [Vitamin D3] 1,000 unit PO DAILY 12/11/18 Escitalopram Oxalate [Lexapro -] 10 mg PO DAILY 12/11/18 Metolazone 5 mg PO DAILY 12/11/18 Sennosides [Senna] 8.6 mg PO DAILY PRN 12/11/18 Simethicone 125 mg PO TID PRN 12/11/18 Sitagliptin Phosphate [Januvia] 25 mg PO DAILY 12/11/18 Tadalafil [Cialis] 20 mg PO DAILY PRN 12/11/18 Family Disease History - Family Disease History Family History: Denies Review of Systems - Review of Systems Constitutional: reports: Malaise Eyes: reports: No Symptoms HENT: reports: No Symptoms Neck: reports: No Symptoms Cardiovascular: reports: No Symptoms Respiratory: reports: No Symptoms Gastrointestinal: reports: No Symptoms Genitourinary: reports: No Symptoms Musculoskeletal: reports: Other (knee pain) Neurological: reports: No Symptoms Endocrine: reports: No Symptoms Hematology/Lymphatic: reports: No Symptoms Psychiatric: reports: No Symptoms Physical Exam Vital Signs: Vital Signs Temperature 99.5 F 12/22/18 14:01 Pulse Rate 71 12/22/18 14:01 Respiratory Rate 18 12/22/18 14:01 Blood Pressure 92/41 L 12/22/18 14:01 O2 Sat by Pulse Oximetry (%) 93 L 12/22/18 14:01 Constitutional: Yes: Calm Eyes: Yes: Conjunctiva Clear HENT: Yes: Atraumatic Cardiovascular: Yes: S1, S2 Respiratory: Yes: CTA Bilaterally Gastrointestinal: Yes: Soft, Abdomen, Obese Renal/: Yes: WNL Musculoskeletal: Yes: Other (dressing in place on left knee) Neurological: Yes: Oriented Psychiatric: Yes: Oriented Labs: CBC, BMP 12/22/18 06:30 12/22/18 06:30 Laboratory Tests 12/21/18 12/21/18 12/22/18 07:20 07:20 06:30 WBC 16.2 H 14.3 H Hgb 9.5 L 8.3 L Sodium 140 Potassium 3.1 L BUN 78.0 H Creatinine 3.7 H Est GFR (CKD-EPI)AfAm 17.59 12/22/18 06:30 WBC Hgb Sodium 139 Potassium 3.4 L BUN 83.0 H Creatinine 4.2 H Est GFR (CKD-EPI)AfAm 15.09 Imaging - Results Chest X-ray: Report Reviewed Ultrasound: Report Reviewed Problem List - Problems (1) CKD (chronic kidney disease) Code(s): N18.9 - CHRONIC KIDNEY DISEASE, UNSPECIFIED (2) HTN (hypertension) Code(s): I10 - ESSENTIAL (PRIMARY) HYPERTENSION (3) Multiple myeloma Code(s): C90.00 - MULTIPLE MYELOMA NOT HAVING ACHIEVED REMISSION (4) Arthritis of knee Code(s): M17.10 - UNILATERAL PRIMARY OSTEOARTHRITIS, UNSPECIFIED KNEE Assessment/Plan Current Medications Generic Name Dose Route Start Last Admin Trade Name Freq PRN Reason Stop Dose Admin Acetaminophen 650 mg 12/20/18 14:15 12/22/18 15:20 Tylenol - PO 12/23/18 14:14 650 mg Q6H [facility] Administration Al Hydroxide/Mg Hydroxide 30 ml 12/20/18 13:43 Mylanta Oral Suspension - PO Q4H PRN DYSPEPSIA Alprazolam 0.5 mg 12/20/18 13:45 12/22/18 08:50 Xanax - PO 0.5 mg Q4H PRN Administration ANXIETY Amlodipine Besylate 10 mg 12/21/18 10:00 12/22/18 09:54 Norvasc - PO 10 mg DAILY [facility] Administration Aspirin 81 mg 12/20/18 22:00 12/22/18 09:55 Ecotrin - PO 81 mg BID [facility] Administration Atorvastatin Calcium 10 mg 12/20/18 22:00 12/21/18 21:21 Lipitor - PO 10 mg HS [facility] Administration Escitalopram Oxalate 10 mg 12/21/18 10:00 12/22/18 09:56 Lexapro - PO 10 mg DAILY [facility] Administration Furosemide 40 mg 12/21/18 10:00 12/22/18 11:17 Lasix - PO 40 mg DAILY [facility] Administration Hydralazine HCl 50 mg 12/20/18 14:00 12/22/18 15:22 Apresoline - PO 50 mg TID [facility] Administration Ceftriaxone Sodium 50 mls @ 200 mls/hr 12/22/18 14:45 12/22/18 15:20 Ceftriaxone 1 Gm-D5w Bag IVPB 200 mls/hr DAILY [facility] Administration Protocol Insulin Detemir 34 units 12/21/18 07:00 12/22/18 07:34 Levemir Vial SQ 34 units 0700 [facility] Administration Lisinopril 5 mg 12/21/18 10:00 12/22/18 09:56 Prinivil PO 5 mg DAILY [facility] Administration Magnesium Hydroxide 30 ml 12/20/18 13:43 Milk Of Magnesia - PO PRN PRN CONSTIPATION Metolazone 5 mg 12/21/18 09:30 12/22/18 09:56 Zaroxolyn - PO 5 mg 0930 [facility] Administration Metoprolol Succinate 50 mg 12/20/18 22:00 12/22/18 09:56 Toprol Xl - PO 50 mg BID [facility] Administration Mirtazapine 30 mg 12/20/18 22:00 12/21/18 21:21 Remeron - PO 30 mg HS [facility] Administration Non-Formulary Medication 125 mg 12/20/18 13:45 Simethicone [Simethicone] PO TID PRN FLATULENCE Ondansetron HCl 4 mg 12/20/18 13:43 Zofran Injection IVPUSH Q6H PRN NAUSEA Oxycodone HCl 5 mg 12/20/18 14:14 Roxicodone - PO Q3H PRN PAIN LEVEL 1-5 Oxycodone HCl 10 mg 12/20/18 14:14 12/20/18 22:44 Roxicodone - PO 10 mg Q3H PRN Administration PAIN LEVEL 6-10 Oxycodone HCl 10 mg 12/20/18 22:00 12/21/18 21:21 Oxycontin - PO 12/23/18 14:16 10 mg BID [facility] Administration Pantoprazole Sodium 40 mg 12/21/18 10:00 12/22/18 09:55 Protonix - PO 40 mg DAILY [facility] Administration Potassium Chloride 10 meq 12/20/18 22:00 08/23/19 09:57 K-Dur - PO 10 meq BID [facility] Administration Senna/Docusate Sodium 2 tablet 12/20/18 22:00 12/22/18 09:57 Pericolace - PO 2 tablet BID [facility] Administration Sitagliptin Phosphate 25 mg 12/21/18 07:00 12/22/18 06:58 Januvia - PO 25 mg 0700 [facility] Administration Impression 1. CKD with acute component 2. hypokalemia 3. s/p TKR 4. hx multiple myeloma 5. DM 6. anemia 7. gerd 8. htn 9. hld Plan - check bladder ultrasound to r/o obstruction - hold lisnopril for now - monitor bp and repeat last value - will replace potassium - change fluids to 1/2 ns and decrease rate - repeat labs in am - avoid nsaids - check iron studies
[2018-12-22] MEDS ORDERED: SODIUM CHLORIDE 0.45% 1,000 ML IV SCH (18:15)
[2018-12-22] MEDS: oxyCODONE HCL 10 MG SUSTAINED ACTING TABLET PO SCH ×2 (19:20→21:14)
[2018-12-22] MEDS: MIRTAZAPINE 15 MG TABLET (FP) PO SCH (21:13)
[2018-12-22] MEDS: ATORVASTATIN CA 10 MG TABLET (FP) PO SCH (21:13)
[2018-12-23] MEDS: ACETAMINOPHEN 325 MG TABLET (FP) PO SCH ×2 (07:05→09:25)
[2018-12-23] MEDS: hydrALAZINE HCL 50 MG TABLET (FP) PO SCH ×2 (07:05→22:55)
[2018-12-23 08:12] LABS: BASO % 0.1 % (0-2.0); EOS % 0.3 % (0-4.5); HEMATOCRIT 23.2 % (35.4-49); HEMOGLOBIN 7.7 GM/dl (11.7-16.9); LYMPH % 17.8 % (8-40); MCH 30.2 pg (25.7-33.7); MCHC 33.2 g/dl (32.0-35.9); MEAN CELL VOLUME 91.1 fl (80-96); MEAN PLT VOLUME 8.4 fl (7.5-11.1); NEUT % 71.8 % (42.8-82.8); PLATELET COUNT 173 K/MM3 (134-434); RBC 2.55 M/mm3 (4.00-5.60); RDW 12.4 % (11.9-15.9); WHITE BLOOD COUNT 11.7 K/mm3 (4.0-10.8)
[2018-12-23 08:35] LABS: ALBUMIN 2.9 g/dl (3.4-5.0); BILIRUBIN,TOTAL 0.9 mg/dl (0.2-1); CREATININE 4.7 mg/dl (0.55-1.3); POTASSIUM 3.3 mmol/L (3.5-5.1); TOT PROT 5.6 g/dl (6.4-8.2)
[2018-12-23] MEDS: INSULIN (LEVEMIR) 100 UNITS/ML UNITS SQ SCH (09:00)
--- NOTE | 2018-12-23 09:00 | PN ---
Progress Note, Physician History of Present Illness: patient feels extremely tired temp are in 99 wbc has decreased - Current Medication List Current Medications: Active Medications Acetaminophen (Tylenol -) 650 mg PO Q6H [facility] Stop: 12/23/18 14:14 Last Admin: 12/23/18 07:05 Dose: 650 mg Al Hydroxide/Mg Hydroxide (Mylanta Oral Suspension -) 30 ml PO Q4H PRN PRN Reason: DYSPEPSIA Alprazolam (Xanax -) 0.5 mg PO Q4H PRN PRN Reason: ANXIETY Last Admin: 12/22/18 08:50 Dose: 0.5 mg Amlodipine Besylate (Norvasc -) 10 mg PO DAILY [facility] Last Admin: 12/22/18 09:54 Dose: 10 mg Aspirin (Ecotrin -) 81 mg PO BID [facility] Last Admin: 12/22/18 21:13 Dose: 81 mg Atorvastatin Calcium (Lipitor -) 10 mg PO HS [facility] Last Admin: 12/22/18 21:13 Dose: 10 mg Escitalopram Oxalate (Lexapro -) 10 mg PO DAILY [facility] Last Admin: 12/22/18 09:56 Dose: 10 mg Hydralazine HCl (Apresoline -) 50 mg PO TID [facility] Last Admin: 12/23/18 07:05 Dose: 50 mg Ceftriaxone Sodium (Ceftriaxone 1 Gm-D5w Bag) 50 mls @ 200 mls/hr IVPB DAILY [facility]; Protocol Last Admin: 12/22/18 15:20 Dose: 200 mls/hr Insulin Detemir (Levemir Vial) 34 units SQ 0700 [facility] Last Admin: 12/22/18 07:34 Dose: 34 units Magnesium Hydroxide (Milk Of Magnesia -) 30 ml PO PRN PRN PRN Reason: CONSTIPATION Metolazone (Zaroxolyn -) 5 mg PO 0930 [facility] Last Admin: 12/22/18 09:56 Dose: 5 mg Metoprolol Succinate (Toprol Xl -) 50 mg PO BID [facility] Last Admin: 12/22/18 21:13 Dose: 50 mg Mirtazapine (Remeron -) 30 mg PO HS [facility] Last Admin: 12/22/18 21:13 Dose: 30 mg Non-Formulary Medication (Simethicone [Simethicone]) 125 mg PO TID PRN PRN Reason: FLATULENCE Ondansetron HCl (Zofran Injection) 4 mg IVPUSH Q6H PRN PRN Reason: NAUSEA Oxycodone HCl (Roxicodone -) 5 mg PO Q3H PRN PRN Reason: PAIN LEVEL 1-5 Oxycodone HCl (Roxicodone -) 10 mg PO Q3H PRN PRN Reason: PAIN LEVEL 6-10 Last Admin: 12/20/18 22:44 Dose: 10 mg Oxycodone HCl (Oxycontin -) 10 mg PO BID [facility] Stop: 12/23/18 14:16 Last Admin: 12/22/18 21:14 Dose: 10 mg Pantoprazole Sodium (Protonix -) 40 mg PO DAILY [facility] Last Admin: 12/22/18 09:55 Dose: 40 mg Potassium Chloride (K-Dur -) 10 meq PO BID [facility] Last Admin: 12/22/18 21:13 Dose: 10 meq Senna/Docusate Sodium (Pericolace -) 2 tablet PO BID [facility] Last Admin: 12/22/18 21:13 Dose: 2 tablet Sitagliptin Phosphate (Januvia -) 25 mg PO 0700 [facility] Last Admin: 12/23/18 07:05 Dose: 25 mg - Objective Vital Signs: Vital Signs Temperature 99.2 F 12/23/18 06:00 Pulse Rate 87 12/23/18 06:00 Respiratory Rate 20 12/23/18 06:00 Blood Pressure 130/54 L 12/23/18 06:00 O2 Sat by Pulse Oximetry (%) 94 L 12/23/18 06:00 Constitutional: Yes: Calm, Other (weakness) Cardiovascular: Yes: S1, S2 Respiratory: Yes: Regular, CTA Bilaterally Gastrointestinal: Yes: Normal Bowel Sounds, Soft Musculoskeletal: Yes: WNL Extremities: Yes: Other Neurological: Yes: Alert, Oriented Psychiatric: Yes: Alert, Oriented Labs: CBC, BMP 12/23/18 07:15 12/23/18 07:15 Assessment/Plan Problem List - Problems (1) CKD (chronic kidney disease) Code(s): N18.9 - CHRONIC KIDNEY DISEASE, UNSPECIFIED (2) HTN (hypertension) Code(s): I10 - ESSENTIAL (PRIMARY) HYPERTENSION (3) Multiple myeloma Code(s): C90.00 - MULTIPLE MYELOMA NOT HAVING ACHIEVED REMISSION (4) Arthritis of knee Code(s): M17.10 - UNILATERAL PRIMARY OSTEOARTHRITIS, UNSPECIFIED KNEE 5 leukocytosis 6 fever plan conitnue ceftriaxone transfusion monitor for fever nephro on case rest as per the team
[2018-12-23] MEDS: POTASSIUM CHLORIDE TABS 10 MEQ TABLET.ER (FP) PO SCH ×2 (09:25→22:54)
[2018-12-23] MEDS: SENNOSIDES/DOCUSATE COMBO (SENNA PLUS) TABLET (UD) PO SCH ×2 (09:26→22:55)
[2018-12-23] MEDS: amLODIPine BESYLATE 10 MG TABLET (FP) PO SCH (09:27)
[2018-12-23] MEDS: ESCITALOPRAM OXALATE 10 MG TABLET (FP) PO SCH (09:27)
[2018-12-23] MEDS: PANTOPRAZOLE 40 MG TABLET (FP) PO SCH (09:27)
[2018-12-23] MEDS: oxyCODONE HCL 10 MG SUSTAINED ACTING TABLET PO SCH (09:27)
[2018-12-23] MEDS: ASPIRIN COATED 81 MG TABLET.EC PO SCH ×2 (09:28→22:55)
[2018-12-23] MEDS: CEFTRIAXONE 1 G/50 ML PREMIX 50 ML IVPB SCH (09:30)
[2018-12-23] MEDS: METOLAZONE 5 MG TABLET PO SCH (09:31)
--- NOTE | 2018-12-23 16:16 | PN ---
Progress Note, Physician History of Present Illness: Pt seen and examined at bedside. He denies shortness of breath. He was in retention and was straight cathed. - Current Medication List Current Medications: Active Medications Al Hydroxide/Mg Hydroxide (Mylanta Oral Suspension -) 30 ml PO Q4H PRN PRN Reason: DYSPEPSIA Amlodipine Besylate (Norvasc -) 10 mg PO DAILY [facility] Last Admin: 12/23/18 09:27 Dose: 10 mg Aspirin (Ecotrin -) 81 mg PO BID [facility] Last Admin: 12/23/18 09:28 Dose: 81 mg Atorvastatin Calcium (Lipitor -) 10 mg PO HS [facility] Last Admin: 12/22/18 21:13 Dose: 10 mg Escitalopram Oxalate (Lexapro -) 10 mg PO DAILY [facility] Last Admin: 12/23/18 09:27 Dose: 10 mg Hydralazine HCl (Apresoline -) 50 mg PO TID [facility] Last Admin: 12/23/18 07:05 Dose: 50 mg Ceftriaxone Sodium (Ceftriaxone 1 Gm-D5w Bag) 50 mls @ 200 mls/hr IVPB DAILY [facility]; Protocol Last Admin: 12/23/18 09:30 Dose: 200 mls/hr Insulin Detemir (Levemir Vial) 34 units SQ 0700 [facility] Last Admin: 12/23/18 09:00 Dose: 34 units Magnesium Hydroxide (Milk Of Magnesia -) 30 ml PO PRN PRN PRN Reason: CONSTIPATION Metolazone (Zaroxolyn -) 5 mg PO 0930 [facility] Last Admin: 12/23/18 09:31 Dose: 5 mg Metoprolol Succinate (Toprol Xl -) 50 mg PO BID [facility] Last Admin: 12/23/18 09:27 Dose: 50 mg Mirtazapine (Remeron -) 30 mg PO HS [facility] Last Admin: 12/22/18 21:13 Dose: 30 mg Non-Formulary Medication (Simethicone [Simethicone]) 125 mg PO TID PRN PRN Reason: FLATULENCE Ondansetron HCl (Zofran Injection) 4 mg IVPUSH Q6H PRN PRN Reason: NAUSEA Pantoprazole Sodium (Protonix -) 40 mg PO DAILY [facility] Last Admin: 12/23/18 09:27 Dose: 40 mg Potassium Chloride (K-Dur -) 10 meq PO BID [facility] Last Admin: 12/23/18 09:25 Dose: 10 meq Senna/Docusate Sodium (Pericolace -) 2 tablet PO BID [facility] Last Admin: 12/23/18 09:26 Dose: 2 tablet Sitagliptin Phosphate (Januvia -) 25 mg PO 0700 [facility] Last Admin: 12/23/18 07:05 Dose: 25 mg - Objective Vital Signs: Vital Signs Temperature 99.1 F 12/23/18 14:12 Pulse Rate 74 12/23/18 14:12 Respiratory Rate 19 12/23/18 14:12 Blood Pressure 123/47 L 12/23/18 14:12 O2 Sat by Pulse Oximetry (%) 100 12/23/18 14:12 Constitutional: Yes: Calm Eyes: Yes: Conjunctiva Clear HENT: Yes: Atraumatic Cardiovascular: Yes: S1, S2 Respiratory: Yes: CTA Bilaterally Gastrointestinal: Yes: Soft Genitourinary: Yes: Other (retention) Musculoskeletal: Yes: Other (knee discomfort) Edema: No Neurological: Yes: Oriented Psychiatric: Yes: Oriented Labs: CBC, BMP 12/23/18 07:15 12/23/18 07:15 Problem List - Problems (1) CKD (chronic kidney disease) Code(s): N18.9 - CHRONIC KIDNEY DISEASE, UNSPECIFIED (2) HTN (hypertension) Code(s): I10 - ESSENTIAL (PRIMARY) HYPERTENSION (3) Multiple myeloma Code(s): C90.00 - MULTIPLE MYELOMA NOT HAVING ACHIEVED REMISSION (4) Arthritis of knee Code(s): M17.10 - UNILATERAL PRIMARY OSTEOARTHRITIS, UNSPECIFIED KNEE Assessment/Plan Current Medications Generic Name Dose Route Start Last Admin Trade Name Bronson PRN Reason Stop Dose Admin Al Hydroxide/Mg Hydroxide 30 ml 12/20/18 13:43 Mylanta Oral Suspension - PO Q4H PRN DYSPEPSIA Amlodipine Besylate 10 mg 12/21/18 10:00 12/23/18 09:27 Norvasc - PO 10 mg DAILY [facility] Administration Aspirin 81 mg 12/20/18 22:00 12/23/18 09:28 Ecotrin - PO 81 mg BID [facility] Administration Atorvastatin Calcium 10 mg 12/20/18 22:00 12/22/18 21:13 Lipitor - PO 10 mg HS [facility] Administration Escitalopram Oxalate 10 mg 12/21/18 10:00 12/23/18 09:27 Lexapro - PO 10 mg DAILY [facility] Administration Hydralazine HCl 50 mg 12/20/18 14:00 12/23/18 07:05 Apresoline - PO 50 mg TID [facility] Administration Ceftriaxone Sodium 50 mls @ 200 mls/hr 12/22/18 14:45 12/23/18 09:30 Ceftriaxone 1 Gm-D5w Bag IVPB 200 mls/hr DAILY [facility] Administration Protocol Insulin Detemir 34 units 12/21/18 07:00 12/23/18 09:00 Levemir Vial SQ 34 units 0700 [facility] Administration Magnesium Hydroxide 30 ml 12/20/18 13:43 Milk Of Magnesia - PO PRN PRN CONSTIPATION Metolazone 5 mg 12/21/18 09:30 12/23/18 09:31 Zaroxolyn - PO 5 mg 0930 [facility] Administration Metoprolol Succinate 50 mg 12/20/18 22:00 12/23/18 09:27 Toprol Xl - PO 50 mg BID [facility] Administration Mirtazapine 30 mg 12/20/18 22:00 12/22/18 21:13 Remeron - PO 30 mg HS [facility] Administration Non-Formulary Medication 125 mg 12/20/18 13:45 Simethicone [Simethicone] PO TID PRN FLATULENCE Ondansetron HCl 4 mg 12/20/18 13:43 Zofran Injection IVPUSH Q6H PRN NAUSEA Pantoprazole Sodium 40 mg 12/21/18 10:00 12/23/18 09:27 Protonix - PO 40 mg DAILY [facility] Administration Potassium Chloride 10 meq 12/20/18 22:00 12/23/18 09:25 K-Dur - PO 10 meq BID [facility] Administration Senna/Docusate Sodium 2 tablet 12/20/18 22:00 12/23/18 09:26 Pericolace - PO 2 tablet BID [facility] Administration Sitagliptin Phosphate 25 mg 12/21/18 07:00 12/23/18 07:05 Januvia - PO 25 mg 0700 [facility] Administration Impression 1. CKD with acute component 2. hypokalemia 3. s/p TKR 4. hx multiple myeloma 5. DM 6. anemia 7. gerd 8. htn 9. hld Plan - pt with high pvr, straight cath was done - recheck bladder scan in a few hours and if in retention place avelar - renal function is worsening - consider transfer to [facility] if renal function worsens HD is not available here - replace potassium - repeat labs in am - lul on hold for muriel - d/c fluids - avoid nsaids
--- NOTE | 2018-12-23 19:03 | PN ---
Progress Note, Physician Chief Complaint: left knee pain, weakness, dizziness History of Present Illness: 73 yo man with Left knee DJD came in for left knee TKA. denies chest pain, palpitations, nausea, vomiting, diarrhea. - Current Medication List Current Medications: Active Medications Amlodipine Besylate (Norvasc -) 10 mg PO DAILY [facility] Last Admin: 12/23/18 09:27 Dose: 10 mg Aspirin (Ecotrin -) 81 mg PO BID [facility] Last Admin: 12/23/18 09:28 Dose: 81 mg Atorvastatin Calcium (Lipitor -) 10 mg PO [facility] Last Admin: 12/22/18 21:13 Dose: 10 mg Escitalopram Oxalate (Lexapro -) 10 mg PO DAILY [facility] Last Admin: 12/23/18 09:27 Dose: 10 mg Hydralazine HCl (Apresoline -) 50 mg PO TID [facility] Last Admin: 12/23/18 07:05 Dose: 50 mg Ceftriaxone Sodium (Ceftriaxone 1 Gm-D5w Bag) 50 mls @ 200 mls/hr IVPB DAILY [facility]; Protocol Last Admin: 12/23/18 09:30 Dose: 200 mls/hr Insulin Detemir (Levemir Vial) 34 units SQ 0700 [facility] Last Admin: 12/23/18 09:00 Dose: 34 units Metoprolol Succinate (Toprol Xl -) 50 mg PO BID [facility] Last Admin: 12/23/18 09:27 Dose: 50 mg Mirtazapine (Remeron -) 30 mg PO HS [facility] Last Admin: 12/22/18 21:13 Dose: 30 mg Non-Formulary Medication (Simethicone [Simethicone]) 125 mg PO TID PRN PRN Reason: FLATULENCE Ondansetron HCl (Zofran Injection) 4 mg IVPUSH Q6H PRN PRN Reason: NAUSEA Pantoprazole Sodium (Protonix -) 40 mg PO DAILY [facility] Last Admin: 12/23/18 09:27 Dose: 40 mg Potassium Chloride (K-Dur -) 10 meq PO BID [facility] Last Admin: 12/23/18 09:25 Dose: 10 meq Senna/Docusate Sodium (Pericolace -) 2 tablet PO BID [facility] Last Admin: 12/23/18 09:26 Dose: 2 tablet Sitagliptin Phosphate (Januvia -) 25 mg PO 0700 [facility] Last Admin: 12/23/18 07:05 Dose: 25 mg - Objective Vital Signs: Vital Signs Temperature 98.6 F 12/23/18 18:00 Pulse Rate 85 12/23/18 18:00 Respiratory Rate 18 12/23/18 18:00 Blood Pressure 142/60 12/23/18 18:00 O2 Sat by Pulse Oximetry (%) 90 L 12/23/18 18:42 Constitutional: Yes: Well Nourished, Anxious Eyes: Yes: WNL HENT: Yes: WNL Neck: Yes: WNL Cardiovascular: Yes: WNL Respiratory: Yes: Diminished Gastrointestinal: Yes: Hypoactive Bowel Sounds ...Rectal Exam: Yes: Deferred Genitourinary: Yes: WNL Musculoskeletal: Yes: Joint Stiffness Extremities: Yes: WNL Edema: No Peripheral Pulses WNL: Yes Integumentary: Yes: WNL Wound/Incision: Yes: Clean/Dry, Well Approximated Neurological: Yes: WNL Psychiatric: Yes: Agitated Labs: CBC, BMP 12/23/18 07:15 12/23/18 07:15 Assessment/Plan 73 yo man with left knee pain S/P TKA POD#3. cont pain management. incentive spirometry -GI, DVT prophylaxis -ID: Cefazolin given dano-operatively. had fever spike. CXR is negative for infiltrate. monitor for fever. on IV ceftriaxone. ID eval appreciated. -HTN: cont amlodipine, hydralazine. -type 2 DM: on insulin, RISS, januvia. -major anxiety and depression: on xanax, lexapro -chronic systolic CHF: on lasix, lisinopril, zaroxylin. hypokalemia from diuresis. supplemented. -multiple myeloma, acute on chronic iron deficiency anemia: awaiting PRBC transfusion. -ÁNGEL on CKD: renal eval appreciated. avoid NSAIDs and nephrotoxins when able. diuretics and lisinopril held. needs straight cath as bladder sonogram shows urinary retention -PT/OOB/OT. so far well tolerated -hypokalemia: supplemented. -oral diet -assessment and plan discussed with pt and staff. labs and meds reviewed will trasfers to [facility] for medical management. 25 min
[2018-12-23] MEDS: ATORVASTATIN CA 10 MG TABLET (FP) PO SCH (22:55)
[2018-12-23] MEDS: MIRTAZAPINE 15 MG TABLET (FP) PO SCH (22:55)
--- NOTE | 2018-12-24 09:43 | PN ---
Progress Note, Physician History of Present Illness: events noted patient transferred to [facility] feels very weak knee pain unable to move still spiking fever - Current Medication List Current Medications: Active Medications Amlodipine Besylate (Norvasc -) 10 mg PO DAILY [facility] Last Admin: 12/23/18 09:27 Dose: 10 mg Aspirin (Ecotrin -) 81 mg PO BID [facility] Last Admin: 12/23/18 22:55 Dose: 81 mg Atorvastatin Calcium (Lipitor -) 10 mg PO HS [facility] Last Admin: 12/23/18 22:55 Dose: 10 mg Escitalopram Oxalate (Lexapro -) 10 mg PO DAILY [facility] Last Admin: 12/23/18 09:27 Dose: 10 mg Hydralazine HCl (Apresoline -) 50 mg PO TID [facility] Last Admin: 12/23/18 22:55 Dose: 50 mg Ceftriaxone Sodium (Ceftriaxone 1 Gm-D5w Bag) 50 mls @ 200 mls/hr IVPB DAILY [facility]; Protocol Last Admin: 12/23/18 09:30 Dose: 200 mls/hr Insulin Detemir (Levemir Vial) 34 units SQ 0700 [facility] Last Admin: 12/23/18 09:00 Dose: 34 units Metoprolol Succinate (Toprol Xl -) 50 mg PO BID [facility] Last Admin: 12/23/18 22:55 Dose: 50 mg Mirtazapine (Remeron -) 30 mg PO HS [facility] Last Admin: 12/23/18 22:55 Dose: 30 mg Non-Formulary Medication (Simethicone [Simethicone]) 125 mg PO TID PRN PRN Reason: FLATULENCE Ondansetron HCl (Zofran Injection) 4 mg IVPUSH Q6H PRN PRN Reason: NAUSEA Pantoprazole Sodium (Protonix -) 40 mg PO DAILY [facility] Last Admin: 12/23/18 09:27 Dose: 40 mg Potassium Chloride (K-Dur -) 10 meq PO BID [facility] Last Admin: 12/23/18 22:54 Dose: 10 meq Senna/Docusate Sodium (Pericolace -) 2 tablet PO BID [facility] Last Admin: 12/23/18 22:55 Dose: 2 tablet Sitagliptin Phosphate (Januvia -) 25 mg PO 0700 [facility] Last Admin: 12/23/18 07:05 Dose: 25 mg - Objective Vital Signs: Vital Signs Temperature 100.1 F H 12/24/18 06:00 Pulse Rate 86 12/24/18 06:00 Respiratory Rate 18 12/24/18 06:00 Blood Pressure 163/74 12/24/18 06:00 O2 Sat by Pulse Oximetry (%) 93 L 12/23/18 22:00 Constitutional: Yes: Calm, Mild Distress Cardiovascular: Yes: S1, S2 Respiratory: Yes: Regular, CTA Bilaterally Gastrointestinal: Yes: Normal Bowel Sounds, Soft Musculoskeletal: Yes: WNL Extremities: Yes: Other Neurological: Yes: Alert, Oriented Psychiatric: Yes: Alert, Oriented Labs: CBC, BMP 12/23/18 07:15 12/23/18 07:15 Assessment/Plan Problem List - Problems (1) CKD (chronic kidney disease) Code(s): N18.9 - CHRONIC KIDNEY DISEASE, UNSPECIFIED (2) HTN (hypertension) Code(s): I10 - ESSENTIAL (PRIMARY) HYPERTENSION (3) Multiple myeloma Code(s): C90.00 - MULTIPLE MYELOMA NOT HAVING ACHIEVED REMISSION (4) Arthritis of knee Code(s): M17.10 - UNILATERAL PRIMARY OSTEOARTHRITIS, UNSPECIFIED KNEE 5 leukocytosis 6 fever patient still spiking fevers plan consider imaging studies of the operated joint continue abx monitor wbc if wbc increases will escalate abx spiking fever--please do blood cx
[2018-12-24] MEDS: ESCITALOPRAM OXALATE 10 MG TABLET (FP) PO SCH (10:32)
[2018-12-24] MEDS: amLODIPine BESYLATE 10 MG TABLET (FP) PO SCH (10:32)
[2018-12-24] MEDS: POTASSIUM CHLORIDE TABS 10 MEQ TABLET.ER (FP) PO SCH ×2 (10:32→21:39)
[2018-12-24] MEDS: PANTOPRAZOLE 40 MG TABLET (FP) PO SCH (10:32)
[2018-12-24] MEDS: ASPIRIN COATED 81 MG TABLET.EC PO SCH ×2 (10:33→21:40)
[2018-12-24] MEDS: SENNOSIDES/DOCUSATE COMBO (SENNA PLUS) TABLET (UD) PO SCH ×2 (10:33→21:39)
[2018-12-24] MEDS: INSULIN (LEVEMIR) 100 UNITS/ML UNITS SQ SCH (10:39)
--- NOTE | 2018-12-24 11:22 | EKG ---
Test Reason : Blood Pressure : / mmHG Vent. Rate : 085 BPM Atrial Rate : 085 BPM P-R Int : 234 ms QRS Dur : 172 ms QT Int : 432 ms P-R-T Axes : 043 -22 009 degrees QTc Int : 514 ms SINUS RHYTHM WITH 1ST DEGREE A-V BLOCK RIGHT BUNDLE BRANCH BLOCK ABNORMAL ECG WHEN COMPARED WITH ECG OF 22-DEC-2018 11:29, NO SIGNIFICANT CHANGE WAS FOUND Confirmed by JENNIFER TEIXEIRA, KIANNA ([id number]) on 12/24/2018 11:22:19 AM Referred By: Ernie Alcaraz Confirmed By:KIANNA RODRIGUEZ MD
[2018-12-24 12:53] LABS: BLOOD UREA NITROGEN 87.7 mg/dL (7-18); CALCIUM 8.2 mg/dL (8.5-10.1); CREATININE 4.5 mg/dL (0.55-1.3); POTASSIUM 3.3 mmol/L (3.5-5.1)
[2018-12-24] MEDS: hydrALAZINE HCL 50 MG TABLET (FP) PO SCH ×4 (14:09→21:40)
[2018-12-24] MEDS ORDERED: POTASSIUM CHLORIDE TABS 20 MEQ TABLET.ER (FP) PO ONE (15:19)
--- NOTE | 2018-12-24 15:22 | PN ---
Progress Note, Physician History of Present Illness: Pt seen and examined at bedside. He is awake and alert. He denies shortness of breath. - Current Medication List Current Medications: Active Medications Amlodipine Besylate (Norvasc -) 10 mg PO DAILY [facility] Last Admin: 12/24/18 10:32 Dose: 10 mg Aspirin (Ecotrin -) 81 mg PO BID [facility] Last Admin: 12/24/18 10:33 Dose: 81 mg Atorvastatin Calcium (Lipitor -) 10 mg PO HS [facility] Last Admin: 12/23/18 22:55 Dose: 10 mg Escitalopram Oxalate (Lexapro -) 10 mg PO DAILY [facility] Last Admin: 12/24/18 10:32 Dose: 10 mg Hydralazine HCl (Apresoline -) 50 mg PO TID [facility] Last Admin: 12/23/18 22:55 Dose: 50 mg Ceftriaxone Sodium 1 gm/ (Dextrose) 50 mls @ 200 mls/hr IVPB DAILY [facility]; Protocol Insulin Detemir (Levemir Vial) 34 units SQ 0700 [facility] Last Admin: 12/24/18 10:39 Dose: 34 units Metoprolol Succinate (Toprol Xl -) 50 mg PO BID [facility] Last Admin: 12/24/18 10:32 Dose: 50 mg Mirtazapine (Remeron -) 30 mg PO HS [facility] Last Admin: 12/23/18 22:55 Dose: 30 mg Non-Formulary Medication (Simethicone [Simethicone]) 125 mg PO TID PRN PRN Reason: FLATULENCE Ondansetron HCl (Zofran Injection) 4 mg IVPUSH Q6H PRN PRN Reason: NAUSEA Pantoprazole Sodium (Protonix -) 40 mg PO DAILY [facility] Last Admin: 12/24/18 10:32 Dose: 40 mg Potassium Chloride (K-Dur -) 10 meq PO BID [facility] Last Admin: 12/24/18 10:32 Dose: 10 meq Senna/Docusate Sodium (Pericolace -) 2 tablet PO BID [facility] Last Admin: 12/24/18 10:33 Dose: 2 tablet Sitagliptin Phosphate (Januvia -) 25 mg PO 0700 [facility] Last Admin: 12/24/18 08:39 Dose: 25 mg - Objective Vital Signs: Vital Signs Temperature 98.9 F 12/24/18 14:55 Pulse Rate 83 08/25/19 14:55 Respiratory Rate 18 12/24/18 14:55 Blood Pressure 152/94 12/24/18 14:55 O2 Sat by Pulse Oximetry (%) 93 L 12/23/18 22:00 Constitutional: Yes: Calm Eyes: Yes: Conjunctiva Clear HENT: Yes: Atraumatic Neck: Yes: Supple Cardiovascular: Yes: S1, S2 Respiratory: Yes: CTA Bilaterally Gastrointestinal: Yes: Normal Bowel Sounds, Soft Genitourinary: Yes: WNL Musculoskeletal: Yes: Other (s/p knee replacement) Edema: No Neurological: Yes: Oriented Psychiatric: Yes: Oriented Labs: CBC, BMP 12/23/18 07:15 12/24/18 07:00 Problem List - Problems (1) CKD (chronic kidney disease) Code(s): N18.9 - CHRONIC KIDNEY DISEASE, UNSPECIFIED (2) HTN (hypertension) Code(s): I10 - ESSENTIAL (PRIMARY) HYPERTENSION (3) Multiple myeloma Code(s): C90.00 - MULTIPLE MYELOMA NOT HAVING ACHIEVED REMISSION (4) Arthritis of knee Code(s): M17.10 - UNILATERAL PRIMARY OSTEOARTHRITIS, UNSPECIFIED KNEE Assessment/Plan Current Medications Generic Name Dose Route Start Last Admin Trade Name Freq PRN Reason Stop Dose Admin Amlodipine Besylate 10 mg 12/21/18 10:00 12/24/18 10:32 Norvasc - PO 10 mg DAILY [facility] Administration Aspirin 81 mg 12/20/18 22:00 12/24/18 10:33 Ecotrin - PO 81 mg BID [facility] Administration Atorvastatin Calcium 10 mg 12/20/18 22:00 12/23/18 22:55 Lipitor - PO 10 mg HS [facility] Administration Escitalopram Oxalate 10 mg 12/21/18 10:00 12/24/18 10:32 Lexapro - PO 10 mg DAILY [facility] Administration Hydralazine HCl 50 mg 12/20/18 14:00 12/23/18 22:55 Apresoline - PO 50 mg TID [facility] Administration Ceftriaxone Sodium 1 gm/ 50 mls @ 200 mls/hr 12/24/18 12:08 Dextrose IVPB DAILY [facility] Protocol Insulin Detemir 34 units 12/21/18 07:00 12/24/18 10:39 Levemir Vial SQ 34 units 0700 [facility] Administration Metoprolol Succinate 50 mg 12/20/18 22:00 12/24/18 10:32 Toprol Xl - PO 50 mg BID [facility] Administration Mirtazapine 30 mg 12/20/18 22:00 12/23/18 22:55 Remeron - PO 30 mg HS [facility] Administration Non-Formulary Medication 125 mg 12/20/18 13:45 Simethicone [Simethicone] PO TID PRN FLATULENCE Ondansetron HCl 4 mg 12/20/18 13:43 Zofran Injection IVPUSH Q6H PRN NAUSEA Pantoprazole Sodium 40 mg 12/21/18 10:00 12/24/18 10:32 Protonix - PO 40 mg DAILY [facility] Administration Potassium Chloride 10 meq 12/20/18 22:00 12/24/18 10:32 K-Dur - PO 10 meq BID [facility] Administration Potassium Chloride 20 meq 12/24/18 15:19 K-Dur - PO 12/24/18 15:20 ONCE ONE Senna/Docusate Sodium 2 tablet 12/20/18 22:00 12/24/18 10:33 Pericolace - PO 2 tablet BID [facility] Administration Sitagliptin Phosphate 25 mg 12/21/18 07:00 12/24/18 08:39 Januvia - PO 25 mg 0700 [facility] Administration Impression 1. CKD with acute component 2. hypokalemia 3. s/p TKR 4. hx multiple myeloma 5. DM 6. anemia 7. gerd 8. htn 9. hld Plan - renal function is starting to improve - repeat labs in am - check mag - repeat cxr in am - pt off of fluids
--- NOTE | 2018-12-24 17:37 | CONSULT ---
Consult Consult Specialty:: Oncology Referred by:: Medicine Reason for Consultation:: History of myeloma - History of Present Illness Chief Complaint: Patient recently underwent elective knee surgery, transferred to [place] for worsening renal function. History of Present Illness: Patient is unable to provide a detailed history, and provided details seem unreliable - indicates he was diagnosed several months ago with myeloma, following workup for anemia and renal failure, and is being treated by Dr Diaz at [facility], and has apparently been doing well. Unable to recall when his last treatment occured, and what regimen he is receiving. Believes he is doing well. No complaints today other than pain L knee. - History Source History Provided By: Patient Limitations to Obtaining History: Poor Historian - Past Medical History Cardio/Vascular: Yes: HTN Renal/: Yes: Renal Inusuff Psych: Yes: Anxiety, Depression Endocrine: Yes: Diabetes Mellitus - Past Surgical History Past Surgical History: Yes: Joint Replacement - Alcohol/Substance Use Hx Alcohol Use: Yes (OCCASIONALLY) - Smoking History Smoking history: Never smoked Home Medications - Allergies Allergies/Adverse Reactions: Allergies Allergy/AdvReac Type Severity Reaction Status Date / Time Sulfa (Sulfonamide Allergy Severe Rash Verified 12/20/18 08:48 Antibiotics) levofloxacin [From Levaquin] Allergy Unknown Verified 12/20/18 08:48 - Home Medications Home Medications: Ambulatory Orders Alprazolam [Xanax] 0.5 mg PO Q4H PRN 07/28/18 Amlodipine Besylate [Norvasc -] 10 mg PO DAILY 07/28/18 Aspirin [Adult Aspirin Regimen] 81 mg PO DAILY 07/28/18 Docusate Sodium [Colace] 100 mg PO TID PRN 07/28/18 Escitalopram Oxalate [Lexapro -] 10 mg PO DAILY 07/28/18 Famotidine [Pepcid] 40 mg PO DAILY 07/28/18 Ferrous Sulfate 325 mg PO DAILY 07/28/18 Folic Acid 1 mg PO DAILY 07/28/18 Fosinopril Sodium 5 mg PO DAILY 07/28/18 Furosemide [Lasix -] 40 mg PO DAILY 07/28/18 Gabapentin 300 mg PO TID 07/28/18 Hydralazine HCl 50 mg PO TID 07/28/18 Insulin Glargine,Hum.rec.anlog [Lantus Solostar PEN (NF)] 34 units SQ DAILY Metoprolol Succinate [Toprol Xl] 50 mg PO BID 07/28/18 Mirtazapine 30 mg PO HS 07/28/18 Potassium Chloride [Klor-Con M10] 10 meq PO BID 07/28/18 Psyllium Husk [Metamucil] 660 gm PO DAILY PRN 07/28/18 Simvastatin [Zocor] 10 mg PO DAILY 07/28/18 Tadalafil [Cialis] 20 mg PO DAILY 07/28/18 Cholecalciferol (Vitamin D3) [Vitamin D3] 1,000 unit PO DAILY 12/11/18 Escitalopram Oxalate [Lexapro -] 10 mg PO DAILY 12/11/18 Metolazone 5 mg PO DAILY 12/11/18 Sennosides [Senna] 8.6 mg PO DAILY PRN 12/11/18 Simethicone 125 mg PO TID PRN 12/11/18 Sitagliptin Phosphate [Januvia] 25 mg PO DAILY 12/11/18 Tadalafil [Cialis] 20 mg PO DAILY PRN 12/11/18 Physical Exam Vital Signs: Vital Signs Temperature 98.9 F 12/24/18 14:55 Pulse Rate 83 12/24/18 14:55 Respiratory Rate 18 12/24/18 14:55 Blood Pressure 152/94 12/24/18 14:55 O2 Sat by Pulse Oximetry (%) 93 L 12/23/18 22:00 Constitutional: Yes: Well Nourished, No Distress Eyes: Yes: Conjunctiva Clear HENT: Yes: Atraumatic, Normocephalic Neck: Yes: Supple, Trachea Midline. No: Lymphadenopathy Cardiovascular: Yes: Regular Rate and Rhythm, Murmur, S1, S2. No: Gallop Respiratory: Yes: Regular, CTA Bilaterally Gastrointestinal: Yes: Normal Bowel Sounds, Distention, Other (Resonant throughout). No: Ascites, Hepatomegaly, Splenomegaly Extremities: Yes: Other (Fresh surgical scar L knee) Edema: No Neurological: Yes: Alert (Difficult with word recall, recent memory recall). No : Ataxia, Dysarthria ...Motor Strength: WNL Psychiatric: Yes: Alert Labs: CBC, BMP 12/23/18 07:15 12/24/18 07:00 Assessment/Plan Recent elective surgery - L knee replacement, with active myeloma, presently under treatment. Anemic (with likely acute component following surgery) and with renal impairment - presumably attributable to his myeloma - baseline lab parameters not known. No myeloma specific intervention warranted at this time. Continue post-surgical care. At high risk for thromboembolism (immobile, recent TKR, possibly septic, active hematoogical malignancy) - vigilance and scrupulous prophylaxis. Recommend pharmacological prophylaxis - enoxaparin 20mg sdaily - (renaly dosed) If return to OR anticipated, or considered bleeding risk then consider heparin gtt. Will try to obtain more detailed information regarding status of his myeloma Tuesday morning.
--- NOTE | 2018-12-24 18:18 | PN ---
Progress Note, Physician Chief Complaint: left knee pain, weakness, dizziness History of Present Illness: 73 yo man with Left knee DJD came in for left knee TKA. denies chest pain, palpitations, nausea, vomiting, diarrhea. - Current Medication List Current Medications: Active Medications Amlodipine Besylate (Norvasc -) 10 mg PO DAILY [facility] Last Admin: 12/24/18 10:32 Dose: 10 mg Aspirin (Ecotrin -) 81 mg PO BID [facility] Last Admin: 12/24/18 10:33 Dose: 81 mg Atorvastatin Calcium (Lipitor -) 10 mg PO HS [facility] Last Admin: 12/23/18 22:55 Dose: 10 mg Escitalopram Oxalate (Lexapro -) 10 mg PO DAILY [facility] Last Admin: 12/24/18 10:32 Dose: 10 mg Hydralazine HCl (Apresoline -) 50 mg PO TID [facility] Last Admin: 12/24/18 17:09 Dose: 50 mg Ceftriaxone Sodium 1 gm/ (Dextrose) 50 mls @ 200 mls/hr IVPB DAILY [facility]; Protocol Insulin Detemir (Levemir Vial) 34 units SQ 0700 [facility] Last Admin: 12/24/18 10:39 Dose: 34 units Metoprolol Succinate (Toprol Xl -) 50 mg PO BID [facility] Last Admin: 12/24/18 10:32 Dose: 50 mg Mirtazapine (Remeron -) 30 mg PO [facility] Last Admin: 12/23/18 22:55 Dose: 30 mg Non-Formulary Medication (Simethicone [Simethicone]) 125 mg PO TID PRN PRN Reason: FLATULENCE Ondansetron HCl (Zofran Injection) 4 mg IVPUSH Q6H PRN PRN Reason: NAUSEA Pantoprazole Sodium (Protonix -) 40 mg PO DAILY [facility] Last Admin: 12/24/18 10:32 Dose: 40 mg Potassium Chloride (K-Dur -) 10 meq PO BID [facility] Last Admin: 12/24/18 10:32 Dose: 10 meq Senna/Docusate Sodium (Pericolace -) 2 tablet PO BID [facility] Last Admin: 12/24/18 10:33 Dose: 2 tablet Sitagliptin Phosphate (Januvia -) 25 mg PO 0700 [facility] Last Admin: 12/24/18 08:39 Dose: 25 mg - Objective Vital Signs: Vital Signs Temperature 98.9 F 12/24/18 14:55 Pulse Rate 83 12/24/18 14:55 Respiratory Rate 18 12/24/18 14:55 Blood Pressure 152/94 12/24/18 14:55 O2 Sat by Pulse Oximetry (%) 93 L 12/23/18 22:00 Constitutional: Yes: Well Nourished, Anxious Eyes: Yes: WNL HENT: Yes: WNL Neck: Yes: WNL Cardiovascular: Yes: WNL Respiratory: Yes: WNL Gastrointestinal: Yes: WNL Genitourinary: Yes: WNL Musculoskeletal: Yes: Joint Stiffness Extremities: Yes: WNL Edema: No Peripheral Pulses WNL: Yes Integumentary: Yes: WNL Wound/Incision: Yes: Clean/Dry, Well Approximated Neurological: Yes: WNL Psychiatric: Yes: Agitated Labs: CBC, BMP 12/23/18 07:15 12/24/18 07:00 Assessment/Plan 73 yo man with left knee pain S/P TKA POD#4. cont pain management. incentive spirometry -GI, DVT prophylaxis -ID: Cefazolin given dano-operatively. had fever spike. CXR is negative for infiltrate. monitor for fever. on IV ceftriaxone. ID eval appreciated. WBC trending down. -HTN: cont amlodipine, hydralazine. -type 2 DM: on levemir 34 units qhs, RISS, januvia. -major anxiety and depression: on xanax, lexapro -chronic systolic CHF: on lasix, lisinopril, zaroxylin. hypokalemia from diuresis. supplemented. -multiple myeloma, acute on chronic iron deficiency anemia: awaiting PRBC transfusion. -ÁNGEL on CKD: renal eval appreciated. avoid NSAIDs and nephrotoxins when able. diuretics and lisinopril held. creatinine trending lower. -PT/OOB/OT. so far well tolerated -hypokalemia: supplemented. -oral diet -assessment and plan discussed with pt and staff. labs and meds reviewed phone calls answered throughout the day. DC planned to rehab . 25 min
[2018-12-24] MEDS: CEFTRIAXONE 1 G/50 ML PREMIX 50 ML IVPB SCH (21:13)
[2018-12-24] MEDS: ATORVASTATIN CA 10 MG TABLET (FP) PO SCH (21:40)
[2018-12-24] MEDS: MIRTAZAPINE 15 MG TABLET (FP) PO SCH (21:40)
[2018-12-24] MEDS ORDERED: ENOXAPARIN NA (PORCINE) 40 MG/0.4 ML DISP.SYRIN SQ SCH (21:45)
[2018-12-24] MEDS ORDERED: ENOXAPARIN NA (PORCINE) 40 MG/0.4 ML DISP.SYRIN SQ ONE (22:30)
[2018-12-24] MEDS: ACETAMINOPHEN 325 MG TABLET (FP) PO PRN (23:28)
[2018-12-25] MEDS ORDERED: HALOPERIDOL LACTATE 5 MG/ML IM ONE ×2 (00:30→13:15)
[2018-12-25] MEDS: hydrALAZINE HCL 50 MG TABLET (FP) PO SCH ×3 (05:48→22:10)
[2018-12-25] MEDS: ACETAMINOPHEN 325 MG TABLET (FP) PO PRN ×2 (05:48→18:06)
[2018-12-25] MEDS: INSULIN (LEVEMIR) 100 UNITS/ML UNITS SQ SCH (06:06)
[2018-12-25 07:45] LABS: ALBUMIN 2.6 g/dl (3.4-5.0); BILIRUBIN,TOTAL 0.6 mg/dL (0.2-1); BLOOD UREA NITROGEN 80.6 mg/dL (7-18); CALCIUM 8.4 mg/dL (8.5-10.1); CREATININE 4.1 mg/dL (0.55-1.3); MAGNESIUM 2.8 mg/dL (1.8-2.4); TOT PROT 5.3 g/dl (6.4-8.2)
--- NOTE | 2018-12-25 08:12 | PN ---
Progress Note (short form) - Note Progress Note: POD#5 Left TKR subvastus approach Transfer from [facility] Awake Fully orientated C/O minimal incisional pain Did walk with PT CVS Stable RESP Clear ABD Soft MSkeletal Bandage dry No NVD No calf or subsartorial tenderness Drain has been removed No echymoses noted at medial thigh. able to actively straight leg raise with no difficulty Comorbidity as per Dr Pérez Renal function appears to be better. ASSESS Left TKR doing well from ortho perspective Requires PT and mobilization and when ready transfer to rehab. Myeloma CRF Improving PLAN PT Mobilize Wound care as before Dry dressings [place] will be removed in office no earlier than 3 weeks. Medical management to conbtinue
[2018-12-25] MEDS ORDERED: cefTRIAXone SODIUM 1 GM VIAL ONE (09:22)
[2018-12-25] MEDS ORDERED: DEXTROSE 5%-WATER - 50 ML IVPB ONE (09:22)
[2018-12-25] MEDS: POTASSIUM CHLORIDE TABS 10 MEQ TABLET.ER (FP) PO SCH ×2 (09:30→22:09)
[2018-12-25] MEDS: ASPIRIN COATED 81 MG TABLET.EC PO SCH ×2 (09:30→22:10)
[2018-12-25] MEDS: ESCITALOPRAM OXALATE 10 MG TABLET (FP) PO SCH (09:30)
[2018-12-25] MEDS: PANTOPRAZOLE 40 MG TABLET (FP) PO SCH (09:30)
--- NOTE | 2018-12-25 09:31 | PN ---
Progress Note, Physician History of Present Illness: low grade fevers last night currently stable sitting in chair knee with pain - Current Medication List Current Medications: Active Medications Acetaminophen (Tylenol -) 650 mg PO Q6H PRN PRN Reason: PAIN 1-5 OR FEVER Last Admin: 12/25/18 05:48 Dose: 650 mg Amlodipine Besylate (Norvasc -) 10 mg PO DAILY [facility] Last Admin: 12/24/18 10:32 Dose: 10 mg Aspirin (Ecotrin -) 81 mg PO BID [facility] Last Admin: 12/24/18 21:40 Dose: 81 mg Atorvastatin Calcium (Lipitor -) 10 mg PO HS [facility] Last Admin: 12/24/18 21:40 Dose: 10 mg Enoxaparin Sodium (Lovenox -) 20 mg SQ DAILY [facility] Escitalopram Oxalate (Lexapro -) 10 mg PO DAILY [facility] Last Admin: 12/24/18 10:32 Dose: 10 mg Hydralazine HCl (Apresoline -) 50 mg PO TID [facility] Last Admin: 12/25/18 05:48 Dose: 50 mg Ceftriaxone Sodium 1 gm/ (Dextrose) 50 mls @ 200 mls/hr IVPB DAILY [facility]; Protocol Insulin Detemir (Levemir Vial) 34 units SQ 0700 [facility] Last Admin: 12/25/18 06:06 Dose: 34 units Metoprolol Succinate (Toprol Xl -) 50 mg PO BID [facility] Last Admin: 12/24/18 21:40 Dose: 50 mg Mirtazapine (Remeron -) 30 mg PO HS [facility] Last Admin: 12/24/18 21:40 Dose: 30 mg Non-Formulary Medication (Simethicone [Simethicone]) 125 mg PO TID PRN PRN Reason: FLATULENCE Ondansetron HCl (Zofran Injection) 4 mg IVPUSH Q6H PRN PRN Reason: NAUSEA Pantoprazole Sodium (Protonix -) 40 mg PO DAILY [facility] Last Admin: 12/24/18 10:32 Dose: 40 mg Potassium Chloride (K-Dur -) 10 meq PO BID [facility] Last Admin: 12/24/18 21:39 Dose: 10 meq Senna/Docusate Sodium (Pericolace -) 2 tablet PO BID [facility] Last Admin: 12/24/18 21:39 Dose: 2 tablet Sitagliptin Phosphate (Januvia -) 25 mg PO 0700 [facility] Last Admin: 08/26/19 06:06 Dose: 25 mg - Objective Vital Signs: Vital Signs Temperature 99.1 F 12/24/18 19:00 Pulse Rate 91 H 12/24/18 19:00 Respiratory Rate 20 12/24/18 19:00 Blood Pressure 150/74 12/24/18 19:00 O2 Sat by Pulse Oximetry (%) 94 L 12/24/18 21:00 Constitutional: Yes: Calm, Mild Distress Cardiovascular: Yes: Regular Rate and Rhythm Respiratory: Yes: Regular, CTA Bilaterally Gastrointestinal: Yes: Normal Bowel Sounds, Soft Musculoskeletal: Yes: WNL Extremities: Yes: Other (pain in the knee joint) Wound/Incision: Yes: Dressing Dry and Intact Neurological: Yes: Alert, Oriented Psychiatric: Yes: Alert, Oriented Labs: CBC, BMP 12/23/18 07:15 12/25/18 06:30 Assessment/Plan Problem List - Problems (1) CKD (chronic kidney disease) Code(s): N18.9 - CHRONIC KIDNEY DISEASE, UNSPECIFIED (2) HTN (hypertension) Code(s): I10 - ESSENTIAL (PRIMARY) HYPERTENSION (3) Multiple myeloma Code(s): C90.00 - MULTIPLE MYELOMA NOT HAVING ACHIEVED REMISSION (4) Arthritis of knee Code(s): M17.10 - UNILATERAL PRIMARY OSTEOARTHRITIS, UNSPECIFIED KNEE 5 leukocytosis 6 fever patient still spiking fevers plan monitor for fever if spikes cx the patient watch urine output rest as per the team
[2018-12-25] MEDS: amLODIPine BESYLATE 10 MG TABLET (FP) PO SCH (09:32)
[2018-12-25] MEDS: CEFTRIAXONE 1 GM in DEXTROSE 5%-WATER - 50 ML IVPB SCH ×2 (09:33→13:00)
[2018-12-25] MEDS: SENNOSIDES/DOCUSATE COMBO (SENNA PLUS) TABLET (UD) PO SCH ×2 (09:33→22:10)
[2018-12-25] MEDS ORDERED: POTASSIUM CHLORIDE TABS 20 MEQ TABLET.ER (FP) PO ONE (10:04)
--- NOTE | 2018-12-25 12:54 | PN ---
Progress Note, Physician History of Present Illness: Pt seen and examined at bedside. He is awake and alert. he denies shortness of breath. - Current Medication List Current Medications: Active Medications Acetaminophen (Tylenol -) 650 mg PO Q6H PRN PRN Reason: PAIN 1-5 OR FEVER Last Admin: 12/25/18 05:48 Dose: 650 mg Amlodipine Besylate (Norvasc -) 10 mg PO DAILY [facility] Last Admin: 12/25/18 09:32 Dose: 10 mg Aspirin (Ecotrin -) 81 mg PO BID [facility] Last Admin: 12/25/18 09:30 Dose: 81 mg Atorvastatin Calcium (Lipitor -) 10 mg PO HS [facility] Last Admin: 12/24/18 21:40 Dose: 10 mg Enoxaparin Sodium (Lovenox -) 20 mg SQ DAILY [facility] Escitalopram Oxalate (Lexapro -) 10 mg PO DAILY [facility] Last Admin: 12/25/18 09:30 Dose: 10 mg Hydralazine HCl (Apresoline -) 50 mg PO TID [facility] Last Admin: 12/25/18 05:48 Dose: 50 mg Ceftriaxone Sodium 1 gm/ (Dextrose) 50 mls @ 200 mls/hr IVPB DAILY [facility]; Protocol Insulin Detemir (Levemir Vial) 34 units SQ 0700 [facility] Last Admin: 12/25/18 06:06 Dose: 34 units Metoprolol Succinate (Toprol Xl -) 50 mg PO BID [facility] Last Admin: 12/25/18 09:30 Dose: 50 mg Mirtazapine (Remeron -) 30 mg PO HS [facility] Last Admin: 12/24/18 21:40 Dose: 30 mg Non-Formulary Medication (Simethicone [Simethicone]) 125 mg PO TID PRN PRN Reason: FLATULENCE Ondansetron HCl (Zofran Injection) 4 mg IVPUSH Q6H PRN PRN Reason: NAUSEA Pantoprazole Sodium (Protonix -) 40 mg PO DAILY [facility] Last Admin: 12/25/18 09:30 Dose: 40 mg Potassium Chloride (K-Dur -) 10 meq PO BID [facility] Last Admin: 12/25/18 09:30 Dose: 10 meq Senna/Docusate Sodium (Pericolace -) 2 tablet PO BID [facility] Last Admin: 12/25/18 09:33 Dose: 2 tablet Sitagliptin Phosphate (Januvia -) 25 mg PO 0700 [facility] Last Admin: 12/25/18 06:06 Dose: 25 mg - Objective Vital Signs: Vital Signs Temperature 99.1 F 12/24/18 19:00 Pulse Rate 91 H 12/24/18 19:00 Respiratory Rate 20 12/24/18 19:00 Blood Pressure 150/74 12/24/18 19:00 O2 Sat by Pulse Oximetry (%) 94 L 12/24/18 21:00 Constitutional: Yes: Calm Eyes: Yes: Conjunctiva Clear HENT: Yes: Atraumatic Neck: Yes: Supple Cardiovascular: Yes: S1, S2 Respiratory: Yes: CTA Bilaterally Gastrointestinal: Yes: Soft Musculoskeletal: Yes: Other (s/p tkr) Edema: LLE: 1+ Neurological: Yes: Oriented Psychiatric: Yes: Oriented Labs: CBC, BMP 12/23/18 07:15 12/25/18 06:30 Problem List - Problems (1) CKD (chronic kidney disease) Code(s): N18.9 - CHRONIC KIDNEY DISEASE, UNSPECIFIED (2) HTN (hypertension) Code(s): I10 - ESSENTIAL (PRIMARY) HYPERTENSION (3) Multiple myeloma Code(s): C90.00 - MULTIPLE MYELOMA NOT HAVING ACHIEVED REMISSION (4) Arthritis of knee Code(s): M17.10 - UNILATERAL PRIMARY OSTEOARTHRITIS, UNSPECIFIED KNEE Assessment/Plan Current Medications Generic Name Dose Route Start Last Admin Trade Name Freq PRN Reason Stop Dose Admin Acetaminophen 650 mg 12/24/18 23:13 12/25/18 05:48 Tylenol - PO 650 mg Q6H PRN Administration PAIN 1-5 OR FEVER Amlodipine Besylate 10 mg 12/21/18 10:00 12/25/18 09:32 Norvasc - PO 10 mg DAILY [facility] Administration Aspirin 81 mg 12/20/18 22:00 12/25/18 09:30 Ecotrin - PO 81 mg BID [facility] Administration Atorvastatin Calcium 10 mg 12/20/18 22:00 12/24/18 21:40 Lipitor - PO 10 mg HS [facility] Administration Enoxaparin Sodium 20 mg 12/24/18 21:45 Lovenox - SQ DAILY [facility] Escitalopram Oxalate 10 mg 12/21/18 10:00 12/25/18 09:30 Lexapro - PO 10 mg DAILY [facility] Administration Hydralazine HCl 50 mg 12/20/18 14:00 12/25/18 05:48 Apresoline - PO 50 mg TID [facility] Administration Ceftriaxone Sodium 1 gm/ 50 mls @ 200 mls/hr 12/24/18 12:08 Dextrose IVPB DAILY [facility] Protocol Insulin Detemir 34 units 12/21/18 07:00 12/25/18 06:06 Levemir Vial SQ 34 units 0700 [facility] Administration Metoprolol Succinate 50 mg 12/20/18 22:00 12/25/18 09:30 Toprol Xl - PO 50 mg BID [facility] Administration Mirtazapine 30 mg 12/20/18 22:00 12/24/18 21:40 Remeron - PO 30 mg HS [facility] Administration Non-Formulary Medication 125 mg 12/20/18 13:45 Simethicone [Simethicone] PO TID PRN FLATUL[facility] Ondansetron HCl 4 mg 12/20/18 13:43 Zofran Injection IVPUSH Q6H PRN NAUSEA Pantoprazole Sodium 40 mg 12/21/18 10:00 12/25/18 09:30 Protonix - PO 40 mg DAILY [facility] Administration Potassium Chloride 10 meq 12/20/18 22:00 12/25/18 09:30 K-Dur - PO 10 meq BID [facility] Administration Senna/Docusate Sodium 2 tablet 12/20/18 22:00 12/25/18 09:33 Pericolace - PO 2 tablet BID [facility] Administration Sitagliptin Phosphate 25 mg 12/21/18 07:00 12/25/18 06:06 Januvia - PO 25 mg 0700 [facility] Administration Impression 1. CKD with acute component 2. hypokalemia 3. s/p TKR 4. hx multiple myeloma 5. DM 6. anemia 7. gerd 8. htn 9. hld Plan - creatinine is improving - replace potassium - mag level reviewed - repeat labs in am - will evaluate for restarting diuretics in am - keep off of fluids
[2018-12-25] MEDS ORDERED: traMADol HCL 50 MG TABLET PO PRN (13:10)
--- NOTE | 2018-12-25 13:16 | PN ---
Physical Exam: SUBJECTIVE: DRAFT PROGRESS NOTE: Patient seen and examined at bedside. Denies any acute complaints. States that he walked only a few steps with physical therapy. Reports that his last therapy for myeloma was was 1 month ago and next scheduled appointment is in December. Denies pain in L knee, chest pain, shortness of breath, weakness, lightheadedness. Oncologic History: Obtained records from Oncologist Dr. Mcintosh office -Newly diagnosed multiple myeloma kappa light chain secreter with standard risk cytogenetics (t11;14) and renal injury 03/30/17 - bone marrow biopsy with normocellular marrow to 30%, kappa plasma cells 15% on CD138 immunostain, 14% on aspirate. FISH: IGH/CCND1. Normal 1p36 and 1q25. No trisomy 9 & 15/no TP 53(-), no 13q deletion. M/E ratio 2/1. [place] iron stores. [place] monoclonal with aberrant CD56 co-expression. No heavy chain Ig specificity. 04/06/17 - PET scan showed no lytic disease and a single focus of mild FDG uptake on posterior C6 spinous process w/o any lytic lesions on low dose CT. Some pleural thickening along major fissure, a 9mm RLL nodule and 2mm nodule in lingula. Non-specific sclerosis in R 4th and 10th ribs and L5, not suggestive of myeloma. 04/21/17 - renal biopsy showing mild diabetic glomerulosclerosis, tubular atrophy and insterstitial fibrosis, no evidence of light chain deposition, some resorption droplets of kappa light chain in proximal tubules and arteriolosclerosis. The primary oncology note quotes "per the 'world famous renal pathologist who read the biopsy, Dr. Faustina Sheikh, patient renal failure far more likely related to DM and HTN than smoldering multiple myeloma' ". -Received 2 cycles of CyBorD with Dr. Mike Weathers at [facility], then transferred care to Dr. Mcintosh with worsening FLC, anemia and renal function. 03/06/18 - started kendra/velcade/dex - patient reported increasing numbness to b/ l hands -> velcade was discontinued after cycle 1 Currently on cycle 11 D1 of Daratumumab was postponed due to knee surgery from 12/26 to 01/16. Smoking Hx: former, quit many years ago (refuses to tell me when and how much was smoked) Alcohol: social Drugs: denies Family History: Mother who passed at age 90 from skin cancer, father was diabetic on dialysis, 1 brother with psychiatric disorder, another brother healthy, one son alive and healthy Last Colonoscopy: 2 years ago - overall indeterminate study due to poor preparation, reports normal findings Oncologist: Dr. Mcintosh at [facility] OBJECTIVE: Vital Signs Period Temp Pulse Resp BP Sys/Jones Pulse Ox Last 24 Hr 98.9 F-99.1 F 83-91 18-20 150-152/74-94 94 GENERAL: A&Ox3, no acute distress EYES: PERRLA, EOMI ENT: Moist mucus membranes NECK: No JVD LUNGS: CTA, no wheezes HEART: RRR, no murmurs ABDOMEN: Obese abdomen, soft, nontender, BS present BREAST: normal breast exam : Testicular exam within normal limits without nodules or masses MUSCULOSKELETAL: No CVA Tenderness EXTREMITIES: 2+ pulses, no edema, L leg restricted in ROM due to recent knee surgery, incision clean and dry NEUROLOGICAL: Cranial nerves II-XII intact. Laboratory Results - last 24 hr 12/25/18 06:30 Sodium 137 Potassium 3.0 L Chloride 98 Carbon Dioxide 29 Anion Gap 10 BUN 80.6 H Creatinine 4.1 H Est GFR (CKD-EPI)AfAm 15.54 Est GFR (CKD-EPI)NonAf 13.41 Random Glucose 133 H Calcium 8.4 L Magnesium 2.8 H Total Bilirubin 0.6 AST 65 H ALT 15 Alkaline Phosphatase 81 Total Protein 5.3 L Albumin 2.6 L Active Medications Generic Name Dose Route Start Last Admin Trade Name [place]onson PRN Reason Stop Dose Admin Acetaminophen 650 mg 12/24/18 23:13 12/25/18 05:48 Tylenol - PO 650 mg Q6H PRN Administration PAIN 1-5 OR FEVER Alprazolam 0.5 mg 12/25/18 13:10 Xanax - PO Q6H PRN ANXIETY Amlodipine Besylate 10 mg 12/21/18 10:00 12/25/18 09:32 Norvasc - PO 10 mg DAILY [facility] Administration Amoxicillin/Clavulanate Potassium 1 tab 12/25/18 13:15 Augmentin - 250mg Tablet PO DAILY [facility] Aspirin 81 mg 12/20/18 22:00 08/26/19 09:30 Ecotrin - PO 81 mg BID [facility] Administration Atorvastatin Calcium 10 mg 12/20/18 22:00 12/24/18 21:40 Lipitor - PO 10 mg HS [facility] Administration Enoxaparin Sodium 20 mg 12/24/18 21:45 Lovenox - SQ DAILY [facility] Escitalopram Oxalate 10 mg 12/21/18 10:00 12/25/18 09:30 Lexapro - PO 10 mg DAILY [facility] Administration Haloperidol 1 mg 12/25/18 13:15 Haldol Injection (Fast Acting) - IM 12/25/18 13:16 ONCE ONE Hydralazine HCl 50 mg 12/20/18 14:00 12/25/18 05:48 Apresoline - PO 50 mg TID [facility] Administration Ceftriaxone Sodium 1 gm/ 50 mls @ 200 mls/hr 12/24/18 12:08 12/25/18 13:00 Dextrose IVPB Not Given DAILY [facility] Protocol Insulin Detemir 34 units 12/21/18 07:00 12/25/18 06:06 Levemir Vial SQ 34 units 0700 [facility] Administration Metoprolol Succinate 50 mg 12/20/18 22:00 12/25/18 09:30 Toprol Xl - PO 50 mg BID [facility] Administration Mirtazapine 30 mg 12/20/18 22:00 12/24/18 21:40 Remeron - PO 30 mg HS [facility] Administration Non-Formulary Medication 125 mg 12/20/18 13:45 Simethicone [Simethicone] PO TID PRN [facility] Ondansetron HCl 4 mg 12/20/18 13:43 Zofran Injection IVPUSH Q6H PRN NAUSEA Pantoprazole Sodium 40 mg 12/21/18 10:00 12/25/18 09:30 Protonix - PO 40 mg DAILY [facility] Administration Potassium Chloride 10 meq 12/20/18 22:00 12/25/18 09:30 K-Dur - PO 10 meq BID [facility] Administration Senna/Docusate Sodium 2 tablet 12/20/18 22:00 12/25/18 09:33 Pericolace - PO 2 tablet BID [facility] Administration Sitagliptin Phosphate 25 mg 12/21/18 07:00 12/25/18 06:06 Januvia - PO 25 mg 0700 [facility] Administration Tramadol HCl 50 mg 12/25/18 13:10 Ultram - PO Q6H PRN NEED PAIN LEVEL ASSESSMENT/PLAN: 73 year old gentleman with multiple comorbidities and actively treated for myeloma is s/p left knee replacement with Dr. Alcaraz; we are consulted for management of myeloma #Myeloma: will obtain records from Dr. Mcintosh on his diagnosis and current treatment regiment -acutely while inpatient he will have to halt his chemotherapy that he gets at [facility] -will need to determine if rehabilitation is best route for this patient as he may need to stop his chemotherapy during rehab; after asking the patient, he reported to me that he would not want to stop his chemotherapy -currently finished 10 cycles of daratumumab, per outpatient records, will hold next treatment scheduled on 12/26 and restart on 01/16 after physical therapy -monitor H&H -monitor renal function -nephrology following #Normocytic Anemia: likely 2/2 myeloma and his chemotherapeutic regimen -patient has not had CBC in several days and last hgb was 7.7, repeat 7.0 -will need 2 U PRBCs -daratumumab, his active chemotherapy can cause false positive type and screen for antibody -will need to contact [facility] to see his pre-treatment type and screen in order to accurately order PRBCs -recheck CBC in AM #Acute on Chronic Kidney Disease: secondary to both hypertension and DM -improving -per renal, hold fluids -US kidney shows L kidney with sinus lipomatosis and no hydronephrosis #S/P L Knee Replacement: doing well postoperatively -encourage inpatient physical therapy -pain control per surgery/primary team -high risk of thromboembolic disease due to active myeloma and chemotherapy -lovenox increased to 30 #HTN - treat per primary #DM - treat per primary team Prophylaxis -lovenox 30 today, switch to heparin tomorrow Disposition -continue to monitor on med surg Gunnar Hickman D.O., PGY3 Case Discussed with Dr. Cordero Visit type - Emergency Visit Emergency Visit: No - New Patient This patient is new to me today: Yes Date on this admission: 12/25/18 - Critical Care Critical Care patient: No ATTENDING PHYSICIAN STATEMENT I saw and evaluated the patient. I reviewed the resident's note and discussed the case with the resident. I agree with the resident's findings and plan as documented. SUBJECTIVE: OBJECTIVE: ASSESSMENT AND PLAN:
[2018-12-25] MEDS: ALPRAZolam 0.25 MG TABLET PO PRN ×2 (13:30→22:27)
[2018-12-25] MEDS: traMADol HCL 50 MG TABLET PO PRN ×2 (13:43→22:29)
[2018-12-25 13:49] LABS: HEMATOCRIT 20.4 % (35.4-49); MCH 30.8 pg (25.7-33.7); MCHC 34.4 g/dl (32.0-35.9); MEAN CELL VOLUME 89.6 fl (80-96); MEAN PLT VOLUME 8.3 fl (7.5-11.1); PLATELET COUNT 185 K/MM3 (134-434); RBC 2.27 M/mm3 (4.00-5.60); RDW 13.5 % (11.9-15.9); WHITE BLOOD COUNT 8.5 K/mm3 (4.0-10.0)
[2018-12-25] MEDS ORDERED: ENOXAPARIN NA (PORCINE) 30 MG/0.3 ML DISP.SYRIN SQ SCH (14:15)
[2018-12-25] MEDS: AMOX TR/POT CLAV 250MG/125MG TABLETS PO SCH (15:36)
--- NOTE | 2018-12-25 16:40 | PATH ---
Surgical Pathology Report Patient Name: CHRIS MURILLO [facility]. Rec. #: [id number] /Age/Gender: 1945 (Age: 73) / M Account: [id number] Location: [address] [place] [address]/[facility] Taken: 12/20/2018 Received: 12/20/2018 Reported: 12/25/2018 Physicians: Ernie Alcaraz M.D. Specimen(s) Received BONES LEFT KNEE Clinical History Left knee osteoarthritis Final Diagnosis BONES, LEFT KNEE, TOTAL KNEE REPLACEMENT: DEGENERATIVE JOINT DISEASE. Electronically Signed Dorothy Apodaca M.D. Gross Description Received in formalin labeled "left knee bone," is a 7.0 x 5.5 x 3.0 cm aggregate of multiple portions of bone and soft tissue, consistent with knee bones. There are areas of eburnation present. The remaining articular surfaces are higgins-yellow and diffusely granular. The underlying trabecular bone is yellow and hard. Clinical Allergist sections are submitted in one cassette, following decalcification. SHELBIE/12/21/2018 neville/12/21/2018
--- NOTE | 2018-12-25 21:23 | PN ---
Progress Note, Physician Chief Complaint: left knee pain, weakness, dizziness History of Present Illness: 73 yo man with Left knee DJD came in for left knee TKA. denies chest pain, palpitations, nausea, vomiting, diarrhea. - Current Medication List Current Medications: Active Medications Acetaminophen (Tylenol -) 650 mg PO Q6H PRN PRN Reason: PAIN 1-5 OR FEVER Last Admin: 12/25/18 18:06 Dose: 650 mg Alprazolam (Xanax -) 0.5 mg PO Q6H PRN PRN Reason: ANXIETY Last Admin: 12/25/18 13:30 Dose: 0.5 mg Amlodipine Besylate (Norvasc -) 10 mg PO DAILY [facility] Last Admin: 12/25/18 09:32 Dose: 10 mg Amoxicillin/Clavulanate Potassium (Augmentin - 250mg Tablet) 1 tab PO DAILY [facility] Last Admin: 12/25/18 15:36 Dose: 1 tab Aspirin (Ecotrin -) 81 mg PO BID [facility] Last Admin: 12/25/18 09:30 Dose: 81 mg Atorvastatin Calcium (Lipitor -) 10 mg PO [facility] Last Admin: 12/24/18 21:40 Dose: 10 mg Escitalopram Oxalate (Lexapro -) 10 mg PO DAILY [facility] Last Admin: 12/25/18 09:30 Dose: 10 mg Heparin Sodium (Porcine) (Heparin -) 5,000 unit SQ BID [facility] Hydralazine HCl (Apresoline -) 50 mg PO TID [facility] Last Admin: 12/25/18 13:30 Dose: 50 mg Ceftriaxone Sodium 1 gm/ (Dextrose) 50 mls @ 200 mls/hr IVPB DAILY [facility]; Protocol Last Admin: 12/25/18 13:00 Dose: Not Given Insulin Detemir (Levemir Vial) 34 units SQ 0700 [facility] Last Admin: 12/25/18 06:06 Dose: 34 units Metoprolol Succinate (Toprol Xl -) 50 mg PO BID [facility] Last Admin: 12/25/18 09:30 Dose: 50 mg Mirtazapine (Remeron -) 30 mg PO HS [facility] Last Admin: 12/24/18 21:40 Dose: 30 mg Non-Formulary Medication (Simethicone [Simethicone]) 125 mg PO TID PRN PRN Reason: FLATULENCE Ondansetron HCl (Zofran Injection) 4 mg IVPUSH Q6H PRN PRN Reason: NAUSEA Pantoprazole Sodium (Protonix -) 40 mg PO DAILY [facility] Last Admin: 12/25/18 09:30 Dose: 40 mg Potassium Chloride (K-Dur -) 10 meq PO BID [facility] Last Admin: 12/25/18 09:30 Dose: 10 meq Senna/Docusate Sodium (Pericolace -) 2 tablet PO BID [facility] Last Admin: 12/25/18 09:33 Dose: 2 tablet Sitagliptin Phosphate (Januvia -) 25 mg PO 0700 [facility] Last Admin: 12/25/18 06:06 Dose: 25 mg Tramadol HCl (Ultram -) 50 mg PO Q6H PRN PRN Reason: PAIN LEVEL 7-10 Last Admin: 12/25/18 13:43 Dose: 50 mg - Objective Vital Signs: Vital Signs Temperature 100.0 F H 12/25/18 18:14 Pulse Rate 77 12/25/18 18:14 Respiratory Rate 20 12/25/18 18:14 Blood Pressure 137/79 12/25/18 18:14 O2 Sat by Pulse Oximetry (%) 96 12/25/18 10:00 Constitutional: Yes: Well Nourished Eyes: Yes: WNL HENT: Yes: WNL Neck: Yes: WNL Cardiovascular: Yes: WNL Respiratory: Yes: WNL Gastrointestinal: Yes: WNL ...Rectal Exam: Yes: Deferred Genitourinary: Yes: WNL Musculoskeletal: Yes: Joint Stiffness Extremities: Yes: WNL Edema: No Peripheral Pulses WNL: Yes Integumentary: Yes: WNL Wound/Incision: Yes: Clean/Dry, Well Approximated Neurological: Yes: WNL ...Motor Strength: WNL Labs: CBC, BMP 12/25/18 06:30 12/25/18 06:30 Assessment/Plan 73 yo man with left knee pain S/P TKA POD#5 cont pain management. incentive spirometry -GI, DVT prophylaxis -ID: Cefazolin given dano-operatively. had fever spike. CXR is negative for infiltrate. monitor for fever. treated with IV ceftriaxone. ID eval appreciated. -HTN: cont amlodipine, hydralazine. -type 2 DM: on levemir,, RISS, januvia. -major anxiety and depression: on xanax, lexapro -chronic systolic CHF: holding lasix, lisinopril, zaroxylin due to ÁNGEL and hyoptenaion. hypokalemia from diuresis. supplemented. -multiple myeloma, acute on chronic iron deficiency anemia: awaiting PRBC transfusion. hematology eval appreciated. holding treatment scheduled on 12/26 and restart on 01/16 after physical therapy. awaiting 2 units PRBC transfusion. -ÁNGEL on CKD: renal eval appreciated. avoid NSAIDs and nephrotoxins when able. diuretics and lisinopril held. -PT/OOB/OT. so far well tolerated -hypokalemia: supplemented. -oral diet -assessment and plan discussed with pt and staff. labs and meds reviewed phone calls answered throughout the day. DC planned to rehab . 25 min
[2018-12-25] MEDS: HEPARIN NA (PORCINE) 5,000 UNITS/ML 1ML VIAL SQ SCH (22:09)
[2018-12-25] MEDS: ATORVASTATIN CA 10 MG TABLET (FP) PO SCH (22:09)
[2018-12-25] MEDS: MIRTAZAPINE 15 MG TABLET (FP) PO SCH (22:09)
[2018-12-26] MEDS: ACETAMINOPHEN 325 MG TABLET (FP) PO PRN ×3 (02:57→19:38)
[2018-12-26] MEDS ORDERED: PT OWN MED DRAWER 7, Y5N ONE (05:35)
[2018-12-26] MEDS ORDERED: INSULIN (NOVOLOG) ASPART 100 UNITS/ML 10ML VIAL ONE ×2 (05:37→06:51)
[2018-12-26] MEDS: hydrALAZINE HCL 50 MG TABLET (FP) PO SCH ×3 (05:42→21:52)
[2018-12-26] MEDS: traMADol HCL 50 MG TABLET PO PRN ×2 (05:42→15:59)
[2018-12-26] MEDS: ALPRAZolam 0.25 MG TABLET PO PRN ×3 (05:47→22:02)
[2018-12-26] MEDS: INSULIN (LEVEMIR) 100 UNITS/ML UNITS SQ SCH (06:24)
[2018-12-26] MEDS ORDERED: DEXTROSE 5%-WATER - 50 ML IVPB ONE (09:16)
[2018-12-26] MEDS ORDERED: cefTRIAXone SODIUM 1 GM VIAL ONE (09:16)
[2018-12-26] MEDS: ESCITALOPRAM OXALATE 10 MG TABLET (FP) PO SCH (09:30)
[2018-12-26] MEDS: CEFTRIAXONE 1 GM in DEXTROSE 5%-WATER - 50 ML IVPB SCH (09:30)
[2018-12-26] MEDS: amLODIPine BESYLATE 10 MG TABLET (FP) PO SCH (09:30)
[2018-12-26] MEDS: PANTOPRAZOLE 40 MG TABLET (FP) PO SCH (09:30)
[2018-12-26] MEDS: POTASSIUM CHLORIDE TABS 10 MEQ TABLET.ER (FP) PO SCH ×2 (09:30→21:52)
[2018-12-26] MEDS: ASPIRIN COATED 81 MG TABLET.EC PO SCH ×2 (09:31→21:52)
[2018-12-26] MEDS: HEPARIN NA (PORCINE) 5,000 UNITS/ML 1ML VIAL SQ SCH ×2 (09:31→21:52)
[2018-12-26] MEDS: SENNOSIDES/DOCUSATE COMBO (SENNA PLUS) TABLET (UD) PO SCH ×2 (09:31→21:53)
--- NOTE | 2018-12-26 10:58 | DS ---
Physical Examination Vital Signs: Vital Signs Temperature 98.7 F 12/26/18 09:00 Pulse Rate 67 12/26/18 09:00 Respiratory Rate 18 12/26/18 09:00 Blood Pressure 121/56 L 12/26/18 09:00 O2 Sat by Pulse Oximetry (%) 96 12/26/18 09:00 Constitutional: Yes: Well Nourished Eyes: Yes: WNL HENT: Yes: WNL Neck: Yes: WNL Cardiovascular: Yes: WNL Respiratory: Yes: WNL Gastrointestinal: Yes: WNL ...Rectal Exam: Yes: WNL Renal/: Yes: WNL Musculoskeletal: Yes: Joint Stiffness Extremities: Yes: WNL Edema: No Peripheral Pulses WNL: Yes Integumentary: Yes: WNL Wound/Incision: Yes: Clean/Dry, Well Approximated Neurological: Yes: WNL ...Motor Strength: WNL Psychiatric: Yes: WNL Labs: CBC, BMP 12/25/18 06:30 12/25/18 06:30 Discharge Summary Reason For Visit: LT KNEE ARTHROPLASTY Current Active Problems Arthritis of knee (Acute) CKD (chronic kidney disease) (Acute) HTN (hypertension) (Acute) Multiple myeloma (Acute) Hospital Course: 73 yo man with left knee pain S/P TKA POD#6 cont pain management. incentive spirometry -GI, DVT prophylaxis -ID: Cefazolin given dano-operatively. had fever spike. CXR is negative for infiltrate. monitor for fever. treated with IV ceftriaxone. ID eval appreciated. -HTN: cont amlodipine, hydralazine. -type 2 DM: on levemir,, RISS, januvia. -major anxiety and depression: on xanax, lexapro -chronic systolic CHF: holding lasix, lisinopril, zaroxylin due to ÁNGEL and hyoptenaion. hypokalemia from diuresis. supplemented. -multiple myeloma, acute on chronic iron deficiency anemia: awaiting PRBC transfusion. hematology eval appreciated. holding treatment scheduled on 12/26 and restart on 01/16 after physical therapy. awaiting 2 units PRBC transfusion. -ÁNGEL on CKD: renal eval appreciated. avoid NSAIDs and nephrotoxins when able. diuretics and lisinopril held. -PT/OOB/OT. so far well tolerated -hypokalemia: supplemented. -oral diet Condition: Good - Instructions Diet, Activity, Other Instructions: Dr. Alcaraz Discharge Instructions for Knee Replacement Post Operative Instructions Physical activity Physical Therapist will come to your home for the first 5 days. You will be set up with outpatient PT at your first post-operative visit. Use assistive devices for ambulation at all times. Weight bearing as tolerated on your surgical side. Do not put pillow under knee. May put pillow under heel. Wound care Leave your surgical dressing in place. Do not change the dressing until seen by your surgeon in the office. No baths or showers. Do not submerge your incision. Do not apply any ointments or lotions to your incision. Please call the office if your dressing is soiled/dirty or is falling off. Apply Graduated Compression Stockings (TEDS) to both lower extremities - remove daily for hygiene ONLY. Diet There are no dietary restrictions. Eat healthy, high-fiber foods. Drink 6 to 8 glasses of liquid each day. This will assist in keeping your bowels are regular. Pain management Any pain prescription medication ordered should be taken as prescribed for moderate to severe pain. Do not take additional Tylenol while taking Percocet. Take Aspirin 81 mg two times a day for a total of 6 weeks to prevent blood clots. Call Dr. Alcaraz for any of the following: Severe pain not relieved by medication Fever of 101 or higher Excessive bleeding or drainage on dressing Inability to urinate If you experience chest pain or shortness of breath, please seek emergency care immediately. Please call the office at to confirm your post-op appointment for the week following surgery. Disposition: [facility] - Home Medications Comprehensive Discharge Medication List: Ambulatory Orders Alprazolam [Xanax] 0.5 mg PO Q4H PRN 07/28/18 Amlodipine Besylate [Norvasc -] 10 mg PO DAILY 07/28/18 Aspirin [Adult Aspirin Regimen] 81 mg PO DAILY 07/28/18 Docusate Sodium [Colace] 100 mg PO TID PRN 07/28/18 Escitalopram Oxalate [Lexapro -] 10 mg PO DAILY 07/28/18 Famotidine [Pepcid] 40 mg PO DAILY 07/28/18 Ferrous Sulfate 325 mg PO DAILY 07/28/18 Folic Acid 1 mg PO DAILY 07/28/18 Fosinopril Sodium 5 mg PO DAILY 07/28/18 Furosemide [Lasix -] 40 mg PO DAILY 07/28/18 Gabapentin 300 mg PO TID 07/28/18 Hydralazine HCl 50 mg PO TID 07/28/18 Insulin Glargine,Hum.rec.anlog [Lantus Solostar PEN (NF)] 34 units SQ DAILY Metoprolol Succinate [Toprol Xl] 50 mg PO BID 07/28/18 Mirtazapine 30 mg PO HS 07/28/18 Potassium Chloride [Klor-Con M10] 10 meq PO BID 07/28/18 Psyllium Husk [Metamucil] 660 gm PO DAILY PRN 07/28/18 Simvastatin [Zocor] 10 mg PO DAILY 07/28/18 Tadalafil [Cialis] 20 mg PO DAILY 07/28/18 Cholecalciferol (Vitamin D3) [Vitamin D3] 1,000 unit PO DAILY 12/11/18 Escitalopram Oxalate [Lexapro -] 10 mg PO DAILY 12/11/18 Metolazone 5 mg PO DAILY 12/11/18 Sennosides [Senna] 8.6 mg PO DAILY PRN 12/11/18 Simethicone 125 mg PO TID PRN 12/11/18 Sitagliptin Phosphate [Januvia] 25 mg PO DAILY 12/11/18 Tadalafil [Cialis] 20 mg PO DAILY PRN 12/11/18
--- NOTE | 2018-12-26 12:07 | PN ---
Progress Note, Physician History of Present Illness: patient stable spiked a low grade fever - Current Medication List Current Medications: Active Medications Acetaminophen (Tylenol -) 650 mg PO Q6H PRN PRN Reason: PAIN 1-5 OR FEVER Last Admin: 12/26/18 09:31 Dose: 650 mg Alprazolam (Xanax -) 0.5 mg PO Q6H PRN PRN Reason: ANXIETY Last Admin: 12/26/18 05:47 Dose: 0.5 mg Amlodipine Besylate (Norvasc -) 10 mg PO DAILY [facility] Last Admin: 12/26/18 09:30 Dose: 10 mg Aspirin (Ecotrin -) 81 mg PO BID [facility] Last Admin: 12/26/18 09:31 Dose: 81 mg Atorvastatin Calcium (Lipitor -) 10 mg PO HS [facility] Last Admin: 12/25/18 22:09 Dose: 10 mg Escitalopram Oxalate (Lexapro -) 10 mg PO DAILY [facility] Last Admin: 12/26/18 09:30 Dose: 10 mg Heparin Sodium (Porcine) (Heparin -) 5,000 unit SQ BID [facility] Last Admin: 12/26/18 09:31 Dose: 5,000 unit Hydralazine HCl (Apresoline -) 50 mg PO TID [facility] Last Admin: 12/26/18 05:42 Dose: 50 mg Ceftriaxone Sodium 1 gm/ (Dextrose) 50 mls @ 200 mls/hr IVPB DAILY [facility]; Protocol Last Admin: 12/26/18 09:30 Dose: 200 mls/hr Insulin Detemir (Levemir Vial) 34 units SQ 0700 [facility] Last Admin: 12/26/18 06:24 Dose: 34 units Metoprolol Succinate (Toprol Xl -) 50 mg PO BID [facility] Last Admin: 12/26/18 09:30 Dose: 50 mg Mirtazapine (Remeron -) 30 mg PO HS [facility] Last Admin: 12/25/18 22:09 Dose: 30 mg Non-Formulary Medication (Simethicone [Simethicone]) 125 mg PO TID PRN PRN Reason: FLATULENCE Ondansetron HCl (Zofran Injection) 4 mg IVPUSH Q6H PRN PRN Reason: NAUSEA Pantoprazole Sodium (Protonix -) 40 mg PO DAILY [facility] Last Admin: 12/26/18 09:30 Dose: 40 mg Potassium Chloride (K-Dur -) 10 meq PO BID [facility] Last Admin: 12/26/18 09:30 Dose: 10 meq Senna/Docusate Sodium (Pericolace -) 2 tablet PO BID [facility] Last Admin: 12/26/18 09:31 Dose: 2 tablet Sitagliptin Phosphate (Januvia -) 25 mg PO 0700 [facility] Last Admin: 12/26/18 06:26 Dose: 25 mg Tramadol HCl (Ultram -) 50 mg PO Q6H PRN PRN Reason: PAIN LEVEL 7-10 Last Admin: 12/26/18 05:42 Dose: 50 mg - Objective Vital Signs: Vital Signs Temperature 98.7 F 12/26/18 09:00 Pulse Rate 67 12/26/18 09:00 Respiratory Rate 18 12/26/18 09:00 Blood Pressure 121/56 L 12/26/18 09:00 O2 Sat by Pulse Oximetry (%) 96 12/26/18 09:00 Constitutional: Yes: No Distress, Calm Cardiovascular: Yes: S1, S2 Respiratory: Yes: Regular, CTA Bilaterally Gastrointestinal: Yes: Normal Bowel Sounds, Soft Musculoskeletal: Yes: WNL Extremities: Yes: Other Neurological: Yes: Alert, Oriented Psychiatric: Yes: Alert Labs: CBC, BMP 12/25/18 06:30 12/25/18 06:30 Assessment/Plan Problem List - Problems (1) CKD (chronic kidney disease) Code(s): N18.9 - CHRONIC KIDNEY DISEASE, UNSPECIFIED (2) HTN (hypertension) Code(s): I10 - ESSENTIAL (PRIMARY) HYPERTENSION (3) Multiple myeloma Code(s): C90.00 - MULTIPLE MYELOMA NOT HAVING ACHIEVED REMISSION (4) Arthritis of knee Code(s): M17.10 - UNILATERAL PRIMARY OSTEOARTHRITIS, UNSPECIFIED KNEE 5 leukocytosis 6 fever patient still spiking fevers plan monitor for fever await for cx report
[2018-12-26] MEDS: AMOX TR/POT CLAV 250MG/125MG TABLETS PO SCH (12:48)
[2018-12-26 15:00] LABS: HEMOGLOBIN 9.2 GM/dL (11.7-16.9); MCH 30.2 pg (25.7-33.7); PLATELET COUNT 246 K/MM3 (134-434); RBC 3.04 M/mm3 (4.00-5.60); RDW 13.8 % (11.9-15.9); WHITE BLOOD COUNT 8.1 K/mm3 (4.0-10.0)
[2018-12-26 15:23] LABS: BLOOD UREA NITROGEN 81.1 mg/dL (7-18); CALCIUM 8.5 mg/dL (8.5-10.1); CREATININE 3.7 mg/dL (0.55-1.3); POTASSIUM 3.6 mmol/L (3.5-5.1)
--- NOTE | 2018-12-26 15:55 | PN ---
Progress Note, Physician History of Present Illness: Pt seen and examined at bedside. He is awake and alert. He denies shortness of breath. - Current Medication List Current Medications: Active Medications Acetaminophen (Tylenol -) 650 mg PO Q6H PRN PRN Reason: PAIN 1-5 OR FEVER Last Admin: 12/26/18 09:31 Dose: 650 mg Alprazolam (Xanax -) 0.5 mg PO Q6H PRN PRN Reason: ANXIETY Last Admin: 12/26/18 14:27 Dose: 0.5 mg Amlodipine Besylate (Norvasc -) 10 mg PO DAILY [facility] Last Admin: 12/26/18 09:30 Dose: 10 mg Aspirin (Ecotrin -) 81 mg PO BID [facility] Last Admin: 12/26/18 09:31 Dose: 81 mg Atorvastatin Calcium (Lipitor -) 10 mg PO HS [facility] Last Admin: 12/25/18 22:09 Dose: 10 mg Escitalopram Oxalate (Lexapro -) 10 mg PO DAILY [facility] Last Admin: 12/26/18 09:30 Dose: 10 mg Heparin Sodium (Porcine) (Heparin -) 5,000 unit SQ BID [facility] Last Admin: 12/26/18 09:31 Dose: 5,000 unit Hydralazine HCl (Apresoline -) 50 mg PO TID [facility] Last Admin: 12/26/18 14:27 Dose: 50 mg Ceftriaxone Sodium 1 gm/ (Dextrose) 50 mls @ 200 mls/hr IVPB DAILY [facility]; Protocol Last Admin: 12/26/18 09:30 Dose: 200 mls/hr Insulin Detemir (Levemir Vial) 34 units SQ 0700 [facility] Last Admin: 12/26/18 06:24 Dose: 34 units Metoprolol Succinate (Toprol Xl -) 50 mg PO BID [facility] Last Admin: 12/26/18 09:30 Dose: 50 mg Mirtazapine (Remeron -) 30 mg PO HS [facility] Last Admin: 12/25/18 22:09 Dose: 30 mg Non-Formulary Medication (Simethicone [Simethicone]) 125 mg PO TID PRN PRN Reason: FLATULENCE Ondansetron HCl (Zofran Injection) 4 mg IVPUSH Q6H PRN PRN Reason: NAUSEA Pantoprazole Sodium (Protonix -) 40 mg PO DAILY [facility] Last Admin: 12/26/18 09:30 Dose: 40 mg Potassium Chloride (K-Dur -) 10 meq PO BID [facility] Last Admin: 12/26/18 09:30 Dose: 10 meq Senna/Docusate Sodium (Pericolace -) 2 tablet PO BID [facility] Last Admin: 12/26/18 09:31 Dose: 2 tablet Sitagliptin Phosphate (Januvia -) 25 mg PO 0700 [facility] Last Admin: 12/26/18 06:26 Dose: 25 mg Tramadol HCl (Ultram -) 50 mg PO Q6H PRN PRN Reason: PAIN LEVEL 7-10 Last Admin: 12/26/18 05:42 Dose: 50 mg - Objective Vital Signs: Vital Signs Temperature 98.9 F 12/26/18 14:43 Pulse Rate 79 12/26/18 14:43 Respiratory Rate 18 12/26/18 14:43 Blood Pressure 151/77 12/26/18 14:43 O2 Sat by Pulse Oximetry (%) 96 12/26/18 09:00 Constitutional: Yes: Calm Eyes: Yes: Conjunctiva Clear HENT: Yes: Atraumatic Neck: Yes: Supple Cardiovascular: Yes: S1, S2 Respiratory: Yes: CTA Bilaterally Gastrointestinal: Yes: Normal Bowel Sounds, Soft Genitourinary: Yes: WNL Musculoskeletal: Yes: Other (s/p tkr) Edema: LLE: Trace Neurological: Yes: Oriented Psychiatric: Yes: Oriented Labs: CBC, BMP 12/26/18 14:30 12/26/18 14:30 Problem List - Problems (1) CKD (chronic kidney disease) Code(s): N18.9 - CHRONIC KIDNEY DISEASE, UNSPECIFIED (2) HTN (hypertension) Code(s): I10 - ESSENTIAL (PRIMARY) HYPERTENSION (3) Multiple myeloma Code(s): C90.00 - MULTIPLE MYELOMA NOT HAVING ACHIEVED REMISSION (4) Arthritis of knee Code(s): M17.10 - UNILATERAL PRIMARY OSTEOARTHRITIS, UNSPECIFIED KNEE Assessment/Plan Current Medications Generic Name Dose Route Start Last Admin Trade Name Freq PRN Reason Stop Dose Admin Acetaminophen 650 mg 12/24/18 23:13 12/26/18 09:31 Tylenol - PO 650 mg Q6H PRN Administration PAIN 1-5 OR FEVER Alprazolam 0.5 mg 12/25/18 13:10 12/26/18 14:27 Xanax - PO 0.5 mg Q6H PRN Administration ANXIETY Amlodipine Besylate 10 mg 12/21/18 10:00 12/26/18 09:30 Norvasc - PO 10 mg DAILY [facility] Administration Aspirin 81 mg 12/20/18 22:00 12/26/18 09:31 Ecotrin - PO 81 mg BID [facility] Administration Atorvastatin Calcium 10 mg 12/20/18 22:00 12/25/18 22:09 Lipitor - PO 10 mg HS [facility] Administration Escitalopram Oxalate 10 mg 12/21/18 10:00 12/26/18 09:30 Lexapro - PO 10 mg DAILY [facility] Administration Heparin Sodium (Porcine) 5,000 unit 12/25/18 22:00 12/26/18 09:31 Heparin - SQ 5,000 unit BID [facility] Administration Hydralazine HCl 50 mg 12/20/18 14:00 12/26/18 14:27 Apresoline - PO 50 mg TID [facility] Administration Ceftriaxone Sodium 1 gm/ 50 mls @ 200 mls/hr 12/24/18 12:08 12/26/18 09:30 Dextrose IVPB 200 mls/hr DAILY [facility] Administration Protocol Insulin Detemir 34 units 12/21/18 07:00 12/26/18 06:24 Levemir Vial SQ 34 units 0700 [facility] Administration Metoprolol Succinate 50 mg 12/20/18 22:00 12/26/18 09:30 Toprol Xl - PO 50 mg BID [facility] Administration Mirtazapine 30 mg 12/20/18 22:00 12/25/18 22:09 Remeron - PO 30 mg HS [facility] Administration Non-Formulary Medication 125 mg 12/20/18 13:45 Simethicone [Simethicone] PO TID PRN [facility]AT[facility] Ondansetron HCl 4 mg 12/20/18 13:43 Zofran Injection IVPUSH Q6H PRN NAUSEA Pantoprazole Sodium 40 mg 12/21/18 10:00 12/26/18 09:30 Protonix - PO 40 mg DAILY [facility] Administration Potassium Chloride 10 meq 12/20/18 22:00 12/26/18 09:30 K-Dur - PO 10 meq BID [facility] Administration Senna/Docusate Sodium 2 tablet 12/20/18 22:00 12/26/18 09:31 Pericolace - PO 2 tablet BID [facility] Administration Sitagliptin Phosphate 25 mg 12/21/18 07:00 12/26/18 06:26 Januvia - PO 25 mg 0700 [facility] Administration Tramadol HCl 50 mg 12/25/18 13:29 12/26/18 05:42 Ultram - PO 50 mg Q6H PRN Administration PAIN LEVEL 7-10 Impression 1. CKD with acute component 2. hypokalemia 3. s/p TKR 4. hx multiple myeloma 5. DM 6. anemia 7. gerd 8. htn 9. hld Plan - renal function stabilizing - potassium improved - restart lasix tomorrow - monitor volume status - discussed with medical team
[2018-12-26] MEDS: ATORVASTATIN CA 10 MG TABLET (FP) PO SCH (21:52)
[2018-12-26] MEDS: MIRTAZAPINE 15 MG TABLET (FP) PO SCH (21:53)
--- NOTE | 2018-12-26 23:25 | RAPID ---
Physical Examination Vital Signs: Vital Signs Temperature 101.0 F H 12/26/18 20:39 Pulse Rate 93 H 12/26/18 20:39 Respiratory Rate 20 12/26/18 20:39 Blood Pressure 161/75 12/26/18 20:39 O2 Sat by Pulse Oximetry (%) 96 12/26/18 09:00 Findings/Remarks: Rapid Response was called at 2205. composition roll maker and cutter team arrived, patient found to be coughing and stated that he was having difficulty breathing following PO intake of his medication. #Initial Vitals: -B/P 197/84 -Pulse 99 -O2 94% on Room Air #JB: -Pt was sitting in bed, AOx3, coughing -On auscultation ??? -RRR Patient's condition began to improve. #Repeat Vitals: -BP 157/72 -Pulse 87 -O2 95% on Room Air #Assessment and Plan: -R/o aspiration -Placed on NPO -CXR stat ordered -Speech and swallow evaluation with Camelia Roseanna ordered Labs: CBC, BMP 12/26/18 14:30 12/26/18 14:30
[2018-12-27 02:47] LABS: EPI CELLS 1.5 /HPF (0-5/HPF); HYALINE CASTS 6 /lpf (0-8); URINE APPEARANCE CLOUDY; URINE BACTERIA 44.7 /hpf (NEGATIVE); URINE BILIRUBIN NEGATIVE (NEGATIVE); URINE COLOR YELLOW; URINE GLUCOSE (UA) NEGATIVE (NEGATIVE); URINE KETONE NEGATIVE (NEGATIVE); URINE LEUK ESTERASE NEGATIVE (NEGATIVE); URINE NITRITE NEGATIVE (NEGATIVE); URINE PROTEIN 2+ (NEGATIVE); URINE UROBILINOGEN 0.2 mg/dL (0.2-1.0); URINE WBC 1 /hpf (0-5)
[2018-12-27] MEDS: hydrALAZINE HCL 50 MG TABLET (FP) PO SCH ×2 (06:23→14:49)
[2018-12-27] MEDS: INSULIN (LEVEMIR) 100 UNITS/ML UNITS SQ SCH (06:24)
[2018-12-27 06:45] LABS: URINE RBC 4.3 /hpf (0-4)
[2018-12-27] MEDS ORDERED: cefTRIAXone SODIUM 1 GM VIAL ONE (09:30)
[2018-12-27] MEDS ORDERED: DEXTROSE 5%-WATER - 50 ML IVPB ONE (09:31)
[2018-12-27] MEDS: POTASSIUM CHLORIDE TABS 10 MEQ TABLET.ER (FP) PO SCH (09:35)
[2018-12-27] MEDS: PANTOPRAZOLE 40 MG TABLET (FP) PO SCH (09:35)
[2018-12-27] MEDS: amLODIPine BESYLATE 10 MG TABLET (FP) PO SCH (09:36)
[2018-12-27] MEDS: CEFTRIAXONE 1 GM in DEXTROSE 5%-WATER - 50 ML IVPB SCH (09:36)
[2018-12-27] MEDS: ESCITALOPRAM OXALATE 10 MG TABLET (FP) PO SCH (09:36)
[2018-12-27] MEDS: HEPARIN NA (PORCINE) 5,000 UNITS/ML 1ML VIAL SQ SCH (09:37)
[2018-12-27] MEDS: ASPIRIN COATED 81 MG TABLET.EC PO SCH (09:38)
[2018-12-27] MEDS: SENNOSIDES/DOCUSATE COMBO (SENNA PLUS) TABLET (UD) PO SCH (09:38)
[2018-12-27] MEDS: ALPRAZolam 0.25 MG TABLET PO PRN (09:39)
[2018-12-27] MEDS ORDERED: FUROSEMIDE 40 MG TABLET (FP) PO SCH (10:00)
--- NOTE | 2018-12-27 13:30 | PN ---
Progress Note, Physician History of Present Illness: Pt seen and examined at bedside. He is awake and appears comfortable. He says that he choked on water last night. - Current Medication List Current Medications: Active Medications Acetaminophen (Tylenol -) 650 mg PO Q6H PRN PRN Reason: PAIN 1-5 OR FEVER Last Admin: 12/26/18 19:38 Dose: 650 mg Alprazolam (Xanax -) 0.5 mg PO Q6H PRN PRN Reason: ANXIETY Last Admin: 12/27/18 09:39 Dose: 0.5 mg Amlodipine Besylate (Norvasc -) 10 mg PO DAILY [facility] Last Admin: 12/27/18 09:36 Dose: 10 mg Aspirin (Ecotrin -) 81 mg PO BID [facility] Last Admin: 12/27/18 09:38 Dose: 81 mg Atorvastatin Calcium (Lipitor -) 10 mg PO HS [facility] Last Admin: 12/26/18 21:52 Dose: 10 mg Escitalopram Oxalate (Lexapro -) 10 mg PO DAILY [facility] Last Admin: 12/27/18 09:36 Dose: 10 mg Furosemide (Lasix -) 40 mg PO DAILY [facility] Last Admin: 12/27/18 09:35 Dose: 40 mg Heparin Sodium (Porcine) (Heparin -) 5,000 unit SQ BID [facility] Last Admin: 12/27/18 09:37 Dose: 5,000 unit Hydralazine HCl (Apresoline -) 50 mg PO TID [facility] Last Admin: 12/27/18 06:23 Dose: Not Given Ceftriaxone Sodium 1 gm/ (Dextrose) 50 mls @ 200 mls/hr IVPB DAILY [facility]; Protocol Last Admin: 12/27/18 09:36 Dose: 200 mls/hr Insulin Detemir (Levemir Vial) 34 units SQ 0700 [facility] Last Admin: 12/27/18 06:24 Dose: Not Given Metoprolol Succinate (Toprol Xl -) 50 mg PO BID [facility] Last Admin: 12/27/18 09:36 Dose: 50 mg Mirtazapine (Remeron -) 30 mg PO HS [facility] Last Admin: 12/26/18 21:53 Dose: 30 mg Non-Formulary Medication (Simethicone [Simethicone]) 125 mg PO TID PRN PRN Reason: FLATULENCE Ondansetron HCl (Zofran Injection) 4 mg IVPUSH Q6H PRN PRN Reason: NAUSEA Pantoprazole Sodium (Protonix -) 40 mg PO DAILY [facility] Last Admin: 12/27/18 09:35 Dose: 40 mg Potassium Chloride (K-Dur -) 10 meq PO BID [facility] Last Admin: 12/27/18 09:35 Dose: 10 meq Senna/Docusate Sodium (Pericolace -) 2 tablet PO BID [facility] Last Admin: 12/27/18 09:38 Dose: 2 tablet Sitagliptin Phosphate (Januvia -) 25 mg PO 0700 [facility] Last Admin: 12/27/18 06:24 Dose: Not Given Tramadol HCl (Ultram -) 50 mg PO Q6H PRN PRN Reason: PAIN LEVEL 7-10 Last Admin: 12/26/18 15:59 Dose: 50 mg - Objective Vital Signs: Vital Signs Temperature 97.9 F 12/27/18 10:00 Pulse Rate 71 12/27/18 10:00 Respiratory Rate 20 12/27/18 10:00 Blood Pressure 143/65 12/27/18 10:00 O2 Sat by Pulse Oximetry (%) 96 12/27/18 10:00 Constitutional: Yes: Calm Eyes: Yes: Conjunctiva Clear HENT: Yes: Atraumatic Neck: Yes: Supple Cardiovascular: Yes: S1, S2 Respiratory: Yes: CTA Bilaterally Gastrointestinal: Yes: Soft Genitourinary: Yes: WNL Musculoskeletal: Yes: Other (s/p tkr) Edema: LLE: Trace Neurological: Yes: Oriented Psychiatric: Yes: Oriented Labs: CBC, BMP 12/26/18 14:30 12/26/18 14:30 Problem List - Problems (1) CKD (chronic kidney disease) Code(s): N18.9 - CHRONIC KIDNEY DISEASE, UNSPECIFIED (2) HTN (hypertension) Code(s): I10 - ESSENTIAL (PRIMARY) HYPERTENSION (3) Multiple myeloma Code(s): C90.00 - MULTIPLE MYELOMA NOT HAVING ACHIEVED REMISSION (4) Arthritis of knee Code(s): M17.10 - UNILATERAL PRIMARY OSTEOARTHRITIS, UNSPECIFIED KNEE Assessment/Plan Current Medications Generic Name Dose Route Start Last Admin Trade Name Freq PRN Reason Stop Dose Admin Acetaminophen 650 mg 12/24/18 23:13 12/26/18 19:38 Tylenol - PO 650 mg Q6H PRN Administration PAIN 1-5 OR FEVER Alprazolam 0.5 mg 12/25/18 13:10 12/27/18 09:39 Xanax - PO 0.5 mg Q6H PRN Administration ANXIETY Amlodipine Besylate 10 mg 12/21/18 10:00 12/27/18 09:36 Norvasc - PO 10 mg DAILY [facility] Administration Aspirin 81 mg 12/20/18 22:00 12/27/18 09:38 Ecotrin - PO 81 mg BID [facility] Administration Atorvastatin Calcium 10 mg 12/20/18 22:00 12/26/18 21:52 Lipitor - PO 10 mg HS [facility] Administration Escitalopram Oxalate 10 mg 12/21/18 10:00 12/27/18 09:36 Lexapro - PO 10 mg DAILY [facility] Administration Furosemide 40 mg 12/27/18 10:00 12/27/18 09:35 Lasix - PO 40 mg DAILY [facility] Administration Heparin Sodium (Porcine) 5,000 unit 12/25/18 22:00 12/27/18 09:37 Heparin - SQ 5,000 unit BID [facility] Administration Hydralazine HCl 50 mg 12/20/18 14:00 12/27/18 06:23 Apresoline - PO Not Given TID [facility] Ceftriaxone Sodium 1 gm/ 50 mls @ 200 mls/hr 12/24/18 12:08 12/27/18 09:36 Dextrose IVPB 200 mls/hr DAILY [facility] Administration Protocol Insulin Detemir 34 units 12/21/18 07:00 12/27/18 06:24 Levemir Vial SQ Not Given 0700 [facility] Metoprolol Succinate 50 mg 12/20/18 22:00 12/27/18 09:36 Toprol Xl - PO 50 mg BID [facility] Administration Mirtazapine 30 mg 12/20/18 22:00 12/26/18 21:53 Remeron - PO 30 mg HS [facility] Administration Non-Formulary Medication 125 mg 12/20/18 13:45 Simethicone [Simethicone] PO TID PRN [facility] Ondansetron HCl 4 mg 12/20/18 13:43 Zofran Injection IVPUSH Q6H PRN NAUSEA Pantoprazole Sodium 40 mg 12/21/18 10:00 12/27/18 09:35 Protonix - PO 40 mg DAILY [facility] Administration Potassium Chloride 10 meq 12/20/18 22:00 12/27/18 09:35 K-Dur - PO 10 meq BID [facility] Administration Senna/Docusate Sodium 2 tablet 12/20/18 22:00 12/27/18 09:38 Pericolace - PO 2 tablet BID [facility] Administration Sitagliptin Phosphate 25 mg 12/21/18 07:00 12/27/18 06:24 Januvia - PO Not Given 0700 [facility] Tramadol HCl 50 mg 12/25/18 13:29 12/26/18 15:59 Ultram - PO 50 mg Q6H PRN Administration PAIN LEVEL 7-10 Impression 1. CKD with acute component 2. hypokalemia 3. s/p TKR 4. hx multiple myeloma 5. DM 6. anemia 7. gerd 8. htn 9. hld Plan - renal function has been improving - pt getting swallow eval - check bmp - monitor volume status
--- NOTE | 2018-12-27 14:12 | CONSULT ---
Admitting History and Physical - Primary Care Physician PCP: Manolo Gamble - Admission History of Present Illness: Pt is a 73 year old male with pmhx of ckd stage 4, htn, multiple myeloma, dm, obesity, anemia and gerd who is s/p left TKR. He has poor appetite. He was also found to have worsening anemia. Yesterday, Rapid Response was called at [id number]. call center agent team arrived, patient found to be coughing and stated that he was having difficulty breathing following PO intake of his medication. Selected Entries 12/23/18 12/23/18 12/23/18 06:00 09:11 13:52 Breakfast 75% Lunch 75% Supper Temperature 99.2 F 12/23/18 12/23/18 12/23/18 14:12 17:47 18:00 Breakfast Lunch Supper 25% Temperature 99.1 F 98.6 F 12/23/18 12/23/18 12/24/18 21:30 23:00 02:00 Breakfast Lunch Supper 50% Temperature 100 F H 99.2 F 12/24/18 12/24/18 12/24/18 06:00 09:51 10:00 Breakfast 50% Lunch Supper Temperature 100.1 F H 98.1 F 12/24/18 12/24/18 12/24/18 14:55 19:00 22:00 Breakfast Lunch 25% Supper 25% Temperature 98.9 F 99.1 F 12/25/18 12/25/18 12/25/18 10:00 15:34 18:14 Breakfast Lunch Supper Temperature 98.7 F 99.0 F 100.0 F H 12/25/18 12/26/18 12/26/18 23:03 05:44 09:00 Breakfast Lunch Supper 75% Temperature 99.0 F 99.5 F 98.7 F 12/26/18 12/26/18 12/26/18 10:27 14:43 20:36 Breakfast 100% Lunch 75% Supper Temperature 98.9 F 101 F H 12/26/18 12/27/18 12/27/18 20:39 00:00 04:00 Breakfast Lunch Supper 75% Temperature 101.0 F H 99.5 F 98.9 F 12/27/18 12/27/18 06:21 10:00 Breakfast Lunch Supper Temperature 98.5 F 97.9 F Laboratory Tests 12/23/18 12/25/18 12/26/18 07:15 06:30 14:30 WBC 11.7 H 8.5 8.1 CXR 12/26 NAD This is my first consult with this pt. History Source: Patient, Medical Record Limitations to Obtaining History: Clinical Condition - Past Medical History Cardiovascular: Yes: HTN Renal/: Yes: Renal Inusuff Heme/Onc: Yes: Other (multiple myeloma) Psych: Yes: Anxiety, Depression Endocrine: Yes: Diabetes Mellitus - Past Surgical History Past Surgical History: Yes: Joint Replacement - Advance Directives Advance Directives: Yes: Health Care Proxy - Smoking History Smoking history: Never smoked - Alcohol/Substance Use Hx Alcohol Use: Yes (OCCASIONALLY) History - Admission Reason For Visit: LT KNEE ARTHROPLASTY - Diagnostics X-ray: Report Reviewed - General Mental Status: Alert and Oriented, Awake and Alert, Able to Follow Commands, Forgetful Attention: Intact Ability to Follow Directions: Excellent Head/Neck Control: WFL - Hearing Hearing: Functional Hearing: Impaired Hearing Aide: No Speech Evaluation - Communication Primary Language: KINY[place]WAN[place] Communication: Yes: Within Normal Limits Oral Expression Ability: Yes: No Impairment - Speech Production Able to Make Needs Known: Yes: WNL Intelligibility: Yes: WNL - Speech Characteristics Voice Loudness: Normal Voice Pitch: Yes: Normal Voice Phonatory-based Quality: Yes: Normal Speech Pattern: Normal Speech Clarity: < 100% Nasal Resonance: Normal Articulation: Yes: Precise Rate of Speech: Intact - Language/Auditory Comprehension Follows: Yes: 1 Stage Simple Commands Observation: Able to respond to yes/no queries: Yes, Yes/No Confusion: No, Comprehends Conversational Speech: Yes - Language/Verbal Expression Able to Respond to Simple Queries: Yes: WNL Able to Communicate Wants and Needs: Yes: WNL Functional Communication Status: Yes: WNL - Swallow Evaluation/Bedside Assessment Current Nutritional Intake: NPO Oral Secretions: Yes: WFL Dentition: Yes: Adequate Facial Symmetry at Rest: Symmetrical Facial Symmetry on Retraction: Symmetrical Facial Movement: Controlled Sensation: Normal Against Resistance Opening: Normal Against Resistance Closing: Normal Pucker Lips: Normal Smile: Normal Lingual Movement: Normal, Symmetric Lingual Speed of Movement: Normal Lingual Movement Strgth Against Opposition: Normal Lingual Movement Characteristics: Absent Velopharyngeal Movement: Normal Laryngeal Elevation: WFL Laryngeal Movement: Able to Palpate Rate of Intake: WFL Bolus Size: WFL Labial Seal: WFL Chewing: WFL Oral Prep Time: WFL A-P Transit: WFL Pocketing: None Timing of Swallow: WFL Coughing/Throat Clear: No Change in Voice: No Recommendations - Speech Evaluation, Impression/Plan Impression: Pt reports reclining, choking on an ice cube, couldnt stop coughing. No h/o dysphagia. Pt has been tolerating reg diet/thin liquids before this incident. Pt tolerated dry saltine and 3 oz water test without difficulty reported or observed. - Dysphagia Impressions/Plan Dysphagia Impressions: Suspect Aspiration (on ice cube while reclining, but swallowing seems intact.) Dysphagia Treatment Plan: OOB for meals, OOB for 1 h. after meals, Other ( monitor tolerance) Recommendations: Modified Barium Swallow (as out pt if difficulty noted) - Recommendations Diet Consistency: Regular Medication Administration: Whole with water Liquids: Thin Liquids
[2018-12-27 14:47] VITALS: BP 144/61; PULSE 63; TEMP 98.8
--- NOTE | 2018-12-27 17:29 | PN ---
Progress Note (short form) - Note Progress Note: Patient seen and examined S/P left total knee replacement Myeloma under therapy - being held during this dano S/P rapid response - tolerating p.o at this time - ? aspiration Anemia--surgery related - s/p transfusion therapy Last Vital Signs Temp Pulse Resp BP Pulse Ox 98.8 F 63 20 144/61 96 12/27/18 14:46 12/27/18 14:46 12/27/18 14:46 12/27/18 14:46 12/27/18 10:00 HEENT: [place], EOM Intact Oropharynx: No thrush, No mucositis Cor: RSR, No murmurs, No gallops Lungs: diminished breath sounds Abd: Soft, Normal bowel sounds, No organomegaly,distended Ext:s/p left total knee Skin: No rashes, Integument intact CBC, BMP 12/26/18 14:30 12/26/18 14:30 Current Medications Generic Name Dose Route Start Last Admin Trade Name Freq PRN Reason Stop Dose Admin Acetaminophen 650 mg 12/24/18 23:13 12/26/18 19:38 Tylenol - PO 650 mg Q6H PRN Administration PAIN 1-5 OR FEVER Alprazolam 0.5 mg 12/25/18 13:10 12/27/18 09:39 Xanax - PO 0.5 mg Q6H PRN Administration ANXIETY Amlodipine Besylate 10 mg 12/21/18 10:00 12/27/18 09:36 Norvasc - PO 10 mg DAILY [facility] Administration Aspirin 81 mg 12/20/18 22:00 12/27/18 09:38 Ecotrin - PO 81 mg BID [facility] Administration Atorvastatin Calcium 10 mg 12/20/18 22:00 12/26/18 21:52 Lipitor - PO 10 mg HS [facility] Administration Escitalopram Oxalate 10 mg 12/21/18 10:00 12/27/18 09:36 Lexapro - PO 10 mg DAILY [facility] Administration Furosemide 40 mg 12/27/18 10:00 12/27/18 09:35 Lasix - PO 40 mg DAILY [facility] Administration Heparin Sodium (Porcine) 5,000 unit 12/25/18 22:00 12/27/18 09:37 Heparin - SQ 5,000 unit BID [facility] Administration Hydralazine HCl 50 mg 12/20/18 14:00 12/27/18 14:49 Apresoline - PO 50 mg TID [facility] Administration Ceftriaxone Sodium 1 gm/ 50 mls @ 200 mls/hr 12/24/18 12:08 12/27/18 09:36 Dextrose IVPB 200 mls/hr DAILY [facility] Administration Protocol Insulin Detemir 34 units 12/21/18 07:00 12/27/18 06:24 Levemir Vial SQ Not Given 0700 [facility] Metoprolol Succinate 50 mg 12/20/18 22:00 12/27/18 09:36 Toprol Xl - PO 50 mg BID [facility] Administration Mirtazapine 30 mg 12/20/18 22:00 12/26/18 21:53 Remeron - PO 30 mg HS [facility] Administration Non-Formulary Medication 125 mg 12/20/18 13:45 Simethicone [Simethicone] PO TID PRN [facility] Ondansetron HCl 4 mg 12/20/18 13:43 Zofran Injection IVPUSH Q6H PRN NAUSEA Pantoprazole Sodium 40 mg 12/21/18 10:00 12/27/18 09:35 Protonix - PO 40 mg DAILY [facility] Administration Potassium Chloride 10 meq 12/20/18 22:00 12/27/18 09:35 K-Dur - PO 10 meq BID [facility] Administration Senna/Docusate Sodium 2 tablet 12/20/18 22:00 12/27/18 09:38 Pericolace - PO 2 tablet BID [facility] Administration Sitagliptin Phosphate 25 mg 12/21/18 07:00 12/27/18 06:24 Januvia - PO Not Given 0700 [facility] Tramadol HCl 50 mg 12/25/18 13:29 12/26/18 15:59 Ultram - PO 50 mg Q6H PRN Administration PAIN LEVEL 7-10 Impression: S/P total knee replacement Multiple myeloma - under therapy CKD Anemia _s/p transfusion DM S/P rapid response With active myeloma , s/p knee surgery , sedentary status , would consider 4-6 weeks of outpatient a/c.
--- NOTE | 2018-12-27 17:59 | PN ---
Progress Note, Physician History of Present Illness: stable no new issues - Current Medication List Current Medications: Active Medications Acetaminophen (Tylenol -) 650 mg PO Q6H PRN PRN Reason: PAIN 1-5 OR FEVER Last Admin: 12/26/18 19:38 Dose: 650 mg Alprazolam (Xanax -) 0.5 mg PO Q6H PRN PRN Reason: ANXIETY Last Admin: 12/27/18 09:39 Dose: 0.5 mg Amlodipine Besylate (Norvasc -) 10 mg PO DAILY [facility] Last Admin: 12/27/18 09:36 Dose: 10 mg Aspirin (Ecotrin -) 81 mg PO BID [facility] Last Admin: 12/27/18 09:38 Dose: 81 mg Atorvastatin Calcium (Lipitor -) 10 mg PO HS [facility] Last Admin: 12/26/18 21:52 Dose: 10 mg Escitalopram Oxalate (Lexapro -) 10 mg PO DAILY [facility] Last Admin: 12/27/18 09:36 Dose: 10 mg Furosemide (Lasix -) 40 mg PO DAILY [facility] Last Admin: 12/27/18 09:35 Dose: 40 mg Heparin Sodium (Porcine) (Heparin -) 5,000 unit SQ BID [facility] Last Admin: 12/27/18 09:37 Dose: 5,000 unit Hydralazine HCl (Apresoline -) 50 mg PO TID [facility] Last Admin: 12/27/18 14:49 Dose: 50 mg Ceftriaxone Sodium 1 gm/ (Dextrose) 50 mls @ 200 mls/hr IVPB DAILY [facility]; Protocol Last Admin: 12/27/18 09:36 Dose: 200 mls/hr Insulin Detemir (Levemir Vial) 34 units SQ 0700 [facility] Last Admin: 12/27/18 06:24 Dose: Not Given Metoprolol Succinate (Toprol Xl -) 50 mg PO BID [facility] Last Admin: 12/27/18 09:36 Dose: 50 mg Mirtazapine (Remeron -) 30 mg PO HS [facility] Last Admin: 12/26/18 21:53 Dose: 30 mg Non-Formulary Medication (Simethicone [Simethicone]) 125 mg PO TID PRN PRN Reason: FLATULENCE Ondansetron HCl (Zofran Injection) 4 mg IVPUSH Q6H PRN PRN Reason: NAUSEA Pantoprazole Sodium (Protonix -) 40 mg PO DAILY [facility] Last Admin: 12/27/18 09:35 Dose: 40 mg Potassium Chloride (K-Dur -) 10 meq PO BID [facility] Last Admin: 12/27/18 09:35 Dose: 10 meq Senna/Docusate Sodium (Pericolace -) 2 tablet PO BID [facility] Last Admin: 12/27/18 09:38 Dose: 2 tablet Sitagliptin Phosphate (Januvia -) 25 mg PO 0700 [facility] Last Admin: 12/27/18 06:24 Dose: Not Given Tramadol HCl (Ultram -) 50 mg PO Q6H PRN PRN Reason: PAIN LEVEL 7-10 Last Admin: 12/26/18 15:59 Dose: 50 mg - Objective Vital Signs: Vital Signs Temperature 98.8 F 12/27/18 14:46 Pulse Rate 63 12/27/18 14:46 Respiratory Rate 20 12/27/18 14:46 Blood Pressure 144/61 12/27/18 14:46 O2 Sat by Pulse Oximetry (%) 96 12/27/18 10:00 Constitutional: Yes: No Distress, Calm Cardiovascular: Yes: S1, S2 Respiratory: Yes: Regular, CTA Bilaterally Gastrointestinal: Yes: Normal Bowel Sounds, Soft Musculoskeletal: Yes: WNL Extremities: Yes: Other Integumentary: Yes: WNL Wound/Incision: Yes: Dressing Dry and Intact Neurological: Yes: Alert, Oriented Psychiatric: Yes: Alert, Oriented Labs: CBC, BMP 12/26/18 14:30 12/26/18 14:30 Assessment/Plan Problem List - Problems (1) CKD (chronic kidney disease) Code(s): N18.9 - CHRONIC KIDNEY DISEASE, UNSPECIFIED (2) HTN (hypertension) Code(s): I10 - ESSENTIAL (PRIMARY) HYPERTENSION (3) Multiple myeloma Code(s): C90.00 - MULTIPLE MYELOMA NOT HAVING ACHIEVED REMISSION (4) Arthritis of knee Code(s): M17.10 - UNILATERAL PRIMARY OSTEOARTHRITIS, UNSPECIFIED KNEE 5 leukocytosis 6 fever patient still spiking fevers plan stable physio rest as per the team
--- NOTE | 2018-12-27 19:44 | PN ---
Progress Note, Physician Chief Complaint: left knee pain, weakness, dizziness History of Present Illness: 73 yo man with Left knee DJD came in for left knee TKA. denies chest pain, palpitations, nausea, vomiting, diarrhea. - Current Medication List Current Medications: Active Medications Acetaminophen (Tylenol -) 650 mg PO Q6H PRN PRN Reason: PAIN 1-5 OR FEVER Last Admin: 12/26/18 19:38 Dose: 650 mg Alprazolam (Xanax -) 0.5 mg PO Q6H PRN PRN Reason: ANXIETY Last Admin: 12/27/18 09:39 Dose: 0.5 mg Amlodipine Besylate (Norvasc -) 10 mg PO DAILY [facility] Last Admin: 12/27/18 09:36 Dose: 10 mg Aspirin (Ecotrin -) 81 mg PO BID [facility] Last Admin: 12/27/18 09:38 Dose: 81 mg Atorvastatin Calcium (Lipitor -) 10 mg PO HS [facility] Last Admin: 12/26/18 21:52 Dose: 10 mg Escitalopram Oxalate (Lexapro -) 10 mg PO DAILY [facility] Last Admin: 12/27/18 09:36 Dose: 10 mg Furosemide (Lasix -) 40 mg PO DAILY [facility] Last Admin: 12/27/18 09:35 Dose: 40 mg Heparin Sodium (Porcine) (Heparin -) 5,000 unit SQ BID [facility] Last Admin: 12/27/18 09:37 Dose: 5,000 unit Hydralazine HCl (Apresoline -) 50 mg PO TID [facility] Last Admin: 12/27/18 14:49 Dose: 50 mg Ceftriaxone Sodium 1 gm/ (Dextrose) 50 mls @ 200 mls/hr IVPB DAILY [facility]; Protocol Last Admin: 12/27/18 09:36 Dose: 200 mls/hr Insulin Detemir (Levemir Vial) 34 units SQ 0700 [facility] Last Admin: 12/27/18 06:24 Dose: Not Given Metoprolol Succinate (Toprol Xl -) 50 mg PO BID [facility] Last Admin: 12/27/18 09:36 Dose: 50 mg Mirtazapine (Remeron -) 30 mg PO HS [facility] Last Admin: 12/26/18 21:53 Dose: 30 mg Non-Formulary Medication (Simethicone [Simethicone]) 125 mg PO TID PRN PRN Reason: FLATULENCE Ondansetron HCl (Zofran Injection) 4 mg IVPUSH Q6H PRN PRN Reason: NAUSEA Pantoprazole Sodium (Protonix -) 40 mg PO DAILY [facility] Last Admin: 12/27/18 09:35 Dose: 40 mg Potassium Chloride (K-Dur -) 10 meq PO BID [facility] Last Admin: 12/27/18 09:35 Dose: 10 meq Senna/Docusate Sodium (Pericolace -) 2 tablet PO BID [facility] Last Admin: 12/27/18 09:38 Dose: 2 tablet Sitagliptin Phosphate (Januvia -) 25 mg PO 0700 [facility] Last Admin: 12/27/18 06:24 Dose: Not Given Tramadol HCl (Ultram -) 50 mg PO Q6H PRN PRN Reason: PAIN LEVEL 7-10 Last Admin: 12/26/18 15:59 Dose: 50 mg - Objective Vital Signs: Vital Signs Temperature 98.8 F 12/27/18 14:46 Pulse Rate 63 12/27/18 14:46 Respiratory Rate 20 12/27/18 14:46 Blood Pressure 144/61 12/27/18 14:46 O2 Sat by Pulse Oximetry (%) 96 12/27/18 10:00 Constitutional: Yes: Well Nourished Eyes: Yes: WNL HENT: Yes: WNL Neck: Yes: WNL Cardiovascular: Yes: WNL Respiratory: Yes: WNL ...Rectal Exam: Yes: WNL Genitourinary: Yes: WNL Musculoskeletal: Yes: Joint Stiffness Extremities: Yes: WNL Peripheral Pulses WNL: Yes Integumentary: Yes: WNL Wound/Incision: Yes: Clean/Dry Neurological: Yes: WNL Labs: CBC, BMP 12/26/18 14:30 12/26/18 14:30 Assessment/Plan 73 yo man with left knee pain S/P TKA POD#6 cont pain management. incentive spirometry -GI, DVT prophylaxis -ID: Cefazolin given dano-operatively. had fever spike. CXR is negative for infiltrate. monitor for fever. treated with IV ceftriaxone. ID eval appreciated. -HTN: cont amlodipine, hydralazine. -type 2 DM: on levemir,, RISS, januvia. -major anxiety and depression: on xanax, lexapro -chronic systolic CHF: holding lasix, lisinopril, zaroxylin due to ÁNGEL and hyoptenaion. hypokalemia from diuresis. supplemented. -multiple myeloma, acute on chronic iron deficiency anemia: awaiting PRBC transfusion. hematology eval appreciated. holding treatment scheduled on 12/26 and restart on 01/16 after physical therapy. -ÁNGEL on CKD: renal eval appreciated. avoid NSAIDs and nephrotoxins when able. diuretics and lisinopril held. -PT/OOB/OT. so far well tolerated -hypokalemia: supplemented. -oral diet -assessment and plan discussed with pt and staff. labs and meds reviewed phone calls answered throughout the day. DC planned to rehab tonight 25 min
== END 2018-12-27 21:28 | DRG 470 ==
LOC: FM/S 08:04 → J6S 12-23 21:20
PROVIDERS: ADMIT Internal Medicine; ATTEND Internal Medicine
PROC: 0SRD0J9 Replacement of Left Knee Joint with Synthetic Substitute, Cemented, Open Approach (ICD-10-PCS; principal; 2018-12-20 12:00)
PROC: 30233N1 Transfusion of Nonautologous Red Blood Cells into Peripheral Vein, Percutaneous Approach (ICD-10-PCS; 2018-12-26)
DX: M17.12 Unilateral primary osteoarthritis, left knee (principal); I50.22 Chronic systolic (congestive) heart failure; N17.9 Acute kidney failure, unspecified; N18.4 Chronic kidney disease, stage 4 (severe); C90.00 Multiple myeloma not having achieved remission; I13.0 Hypertensive heart and chronic kidney disease with heart failure and stage 1 through stage 4 chronic kidney disease, or unspecified chronic kidney disease; F41.8 Other specified anxiety disorders; E11.9 Type 2 diabetes mellitus without complications; E87.6 Hypokalemia; E66.9 Obesity, unspecified; D72.829 Elevated white blood cell count, unspecified; R50.9 Fever, unspecified; D50.9 Iron deficiency anemia, unspecified; K21.9 Gastro-esophageal reflux disease without esophagitis; Z68.35 Body mass index [BMI] 35.0-35.9, adult
CPT/HCPCS: 36415; 36430; 36511; 71045-TC-FY; 73560-TC-LT-FY; 76775-TC; 76856-TC; 80048; 80053; 81003; 82728; 82962; 83540; 83735; 84484; 85025; 85027; 86850; 86870; 86900; 86901; 86902; 86922; 87040; 88304-TC; 88311-TC; 93005; 93010; 94760; 97116-GP; 97162-GP; J1644; P9038; P9058